=== PATIENT | male | born 1960 | race Caucasian/White ===

== ENCOUNTER 2019-04-05 18:05 | Inpatient (IN) | payer BC ==
[~2019-04-05 18:05] MED LIST: Sodium Chloride 0.9% 1,000 ML IV ONE
[2019-04-05] MEDS ORDERED: Ondansetron 4 MG/2 ML SDV IVPUSH ONE (18:20)
[2019-04-05] MEDS ORDERED: HYDROmorphone 2 MG/ML SDV IVPUSH ONE (18:20)
--- NOTE | 2019-04-05 20:32 | EDM.PDOC ---
ED HPI GENERAL MEDICAL PROBLEM - General Chief Complaint: Abdominal Pain Stated Complaint: SENT FROM CLINIC Time Seen by Provider: 04/05/19 20:31 Source of Information: Reports: Patient History Limitations: Reports: No Limitations - History of Present Illness INITIAL COMMENTS - FREE TEXT/NARRATIVE: Michael is a 59 yo male complaining of abdominal pain. He described generalized, diffuse pain that started yesterday. Moderate intensity. Associated symptoms: vomiting x 3. He's not been passing gas. He had had umbilical hernia surgeries x3.Denies urinary symptoms Abdominal Pain Score (Numeric/FACES): 5 Headache Pain Score (Numeric/FACES): 7 - Related Data Allergies Allergy/AdvReac Type Severity Reaction Status Date / Time No Known Allergies Allergy Verified 04/05/19 18:18 Home Meds: Home Meds Aspirin [Ecotrin EC] 81 mg PO BEDTIME 04/06/19 [History] Cholecalciferol (Vitamin D3) [Vitamin D3] 1,000 unit PO BEDTIME 04/06/19 [ History] Fish Oil/[place]-3 Fatty Acids [Fish Oil 1,000 MG] 2 each PO BEDTIME 04/06/19 [ History] Melatonin 10 mg PO BEDTIME 04/06/19 [History] Metoprolol Succinate [Toprol XL 100mg] 100 mg PO BEDTIME 04/06/19 [History] Multivitamin [Multivitamins] 1 each PO BEDTIME 04/06/19 [History] Sertraline [Zoloft] 100 mg PO BEDTIME 04/06/19 [History] hydroCHLOROthiazide [Hydrochlorothiazide] 25 mg PO BEDTIME 04/06/19 [History] Past Medical History Other HEENT History: wears glasses Gastrointestinal History: Reports: Hiatal Hernia Genitourinary History: Reports: Other (See Below) Other Genitourinary History: kidney issues in the past Neurological History: Reports: Headaches, Chronic Endocrine/Metabolic History: Reports: Diabetes, Type II, Other (See Below) Other Endocrine/Metabolic History: borderline - Past Surgical History Cardiovascular Surgical History: Reports: Other (See Below) Other Cardiovascular Surgeries/Procedures: ablation GI Surgical History: Reports: Hernia Repair/Other Musculoskeletal Surgical History: Reports: Arthroscopic Knee Social & Family History - Family History Family Medical History: Noncontributory - Tobacco Use Smoking Status *Q: Never Smoker - Caffeine Use Caffeine Use: Reports: Soda - Recreational Drug Use Recreational Drug Use: No ED ROS GENERAL - Review of Systems Review Of Systems: ROS reveals no pertinent complaints other than HPI. ED EXAM, GI/ABD - Physical Exam Exam: See Below Exam Limited By: No Limitations General Appearance: Alert, WD/WN Eyes: Bilateral: Normal Appearance, EOMI Neck: Normal Inspection Respiratory/Chest: No Respiratory Distress Cardiovascular: Normal Peripheral Pulses GI/Abdominal Exam: Soft, Distended, Tender, Abnormal Bowel Sounds. No: Hepatomegaly, Splenomegaly (Male) Exam: Normal Inspection Extremities: Normal Inspection Neurological: Alert Psychiatric: Normal Affect Course - Vital Signs Last Recorded V/S: Last Vital Signs Temp 97.7 F 04/08/19 08:00 Pulse 67 04/08/19 08:00 Resp 18 04/08/19 08:00 BP 130/87 04/08/19 08:00 Pulse Ox 95 04/08/19 08:00 - Orders/Labs/Meds Meds: Medications Discontinued Medications Generic Name Dose Route Start Last Admin Trade Name Freq PRN Reason Stop Dose Admin Acetaminophen 1,000 mg 04/07/19 09:17 Tylenol Extra Strength PO Q4H PRN Pain Hydromorphone HCl 0.5 mg 04/05/19 18:20 04/05/19 18:30 Dilaudid IVPUSH 04/05/19 18:21 0.5 mg ONETIME ONE Administration Sodium Chloride 1,000 mls @ 500 mls/hr 04/05/19 18:05 04/05/19 18:31 Normal Saline IV 04/05/19 20:04 500 mls/hr .BOLUS ONE Administration Acetaminophen 1,000 mg/ Premix 100 mls @ 400 mls/hr 04/05/19 21:19 04/06/19 18:02 IV 04/06/19 21:20 400 mls/hr Q6H PRN Administration Pain Sodium Chloride 1,000 mls @ 150 mls/hr 04/05/19 19:45 04/06/19 04:44 Normal Saline IV 150 mls/hr ASDIRECTED EDUARDO Administration Potassium Chloride/Dextrose/Sod Cl 1,000 mls @ 125 mls/hr 04/06/19 08:15 04:30 D5 1/2 Ns W/ 20 Meq/L Kcl IV 125 mls/hr Q8H EDUARDO Administration Potassium Chloride 20 meq/ 100 mls @ 50 mls/hr 04/06/19 08:10 04/06/19 08:51 Premix IV 04/06/19 10:09 50 mls/hr ONETIME ONE Administration Lidocaine HCl Confirm 04/05/19 21:17 04/06/19 00:20 Glydo Administered 04/05/19 21:18 Not Given Dose 6 ml .ROUTE .STK-MED ONE Lidocaine HCl 6 ml 04/05/19 21:15 04/05/19 21:20 Glydo .XX 04/05/19 21:16 6 ml ONETIME ONE Administration Magnesium Oxide 400 mg 04/07/19 21:00 04/07/19 20:36 Magnesium Oxide PO 400 mg BEDTIME EDUARDO Administration Morphine Sulfate 1 mg 04/05/19 21:20 04/07/19 00:26 Morphine IVPUSH 1 mg Q1H PRN Administration Pain Ondansetron HCl 4 mg 04/05/19 18:20 04/05/19 18:31 Zofran IVPUSH 04/05/19 18:21 4 mg ONETIME ONE Administration Ondansetron HCl 8 mg 04/05/19 21:16 Zofran IV Q6H PRN Nausea/Vomiting Ondansetron HCl 4 mg 04/05/19 21:20 Zofran IVPUSH Q6H PRN Nausea/Vomiting Sodium Chloride 10 ml 04/07/19 00:50 04/07/19 11:37 Saline Flush FLUSH 10 ml ASDIRECTED PRN Administration Keep Vein Open Departure - Departure Time of Disposition: 19:14 Disposition: Admitted As Inpatient 64 Condition: Good Clinical Impression: SBO (small bowel obstruction) - Discharge Information - Problem List & Annotations (1) SBO (small bowel obstruction) SNOMED Code(s): 426648101 Code(s): K56.609 - UNSP INTESTNL OBST, UNSP TO PARTIAL VERSUS COMPLETE OBST Status: Acute - Problem List Review Problem List Initiated/Reviewed/Updated: Yes - Assessment/Plan Plan: He had had some IV F. Zofran and IV Dilaudid.I have consulted Dr Mario
[2019-04-05] MEDS ORDERED: Lidocaine 2% HCl 6 ML JEL.PF.APP ONE ×2 (21:15→21:17)
[2019-04-05] MEDS ORDERED: Ondansetron 4 MG/2 ML SDV IV PRN (21:16)
[2019-04-05] MEDS ORDERED: Ondansetron 4 MG/2 ML SDV IVPUSH PRN (21:20)
[2019-04-05] MEDS: Morphine 2 MG/ML Syringe IVPUSH PRN (21:45)
[2019-04-05] MEDS: Sodium Chloride 0.9% 1,000 ML IV SCH (22:10)
--- NOTE | 2019-04-05 22:56 | PREOP ---
ADMISSION DATE: 04/05/2019 CHIEF COMPLAINT: Abdominal pain. HISTORY OF PRESENT ILLNESS: This is a 59-year-old white male who presented to the clinic today with complaint of abdominal pain. This has been intermittent in nature with waves of exacerbation and relief. The patient states that this developed yesterday evening. He has had 3 episodes of emesis, 2 last night and one this morning. He identifies no exacerbating or relieving factors. He denies any fever or chills. He underwent today a subsequent workup, which demonstrated essentially normal laboratory exam. An ultrasound was obtained, I do not have the results. A "CT scan" was obtained with water-soluble contrast and apparently a diagnosis of small-bowel obstruction was made on the basis of this film. Has had several small bowel movements of hard stool, patient denies any passage of flatus. He has had several abdominal operations in the past including umbilical hernia repair x3, and apparently, 2 of them were for small bowel obstruction and adhesions. This was done by Dr. Troncoso and Dr. Lehman in the past. SOCIAL HISTORY: The patient is . Drinks very rarely. Denies any cigarette use. CURRENT MEDICATIONS: Toprol and Zoloft, doses currently are not available. PAST MEDICAL HISTORY: Significant for anxiety and hypertension. Cardiac ablation PAST SURGICAL HISTORY: Significant for tonsils and adenoids, knee surgery, as well as abdominal surgery x3 for repair of umbilical hernia with mesh. REVIEW OF SYSTEMS: CONSTITUTIONAL: The patient denies any fever, chills, or weight loss. HEENT: He denies any trouble with his ears, hearing loss, ringing in his ears. Denies any difficulty swallowing, runny nose, sore throat, or voice change. Eyes; denies any significant pathology with his sight. PULMONARY: He notes some occasional wheezing and shortness of breath during wheezing episodes. CARDIAC: He denies any history of any chest pain or irregular heartbeat. He has had a cardiac ablation in the past. GI: See above. URINARY: Denies any dysuria, difficulty urinating. MUSCULOSKELETAL: Has occasional back pain. SKIN: Denies any skin issues. NEUROLOGIC: Denies any neurologic issues. He denies any environmental or food allergies. PHYSICAL EXAMINATION: GENERAL: This is a well-developed, well-nourished white male, appearing in no acute distress. VITAL SIGNS: Temperature is 98.3, pulse rate 82, blood pressure 103/55, respiratory rate of 18, and O2 saturation 92%. HEENT: Reveals him to be normocephalic, atraumatic. Pupils are equal and reactive bilaterally. Oropharynx is clear. LUNGS: Clear to auscultation. HEART: Has a regular rate and rhythm. ABDOMEN: Reveals him to have normal to hyperactive bowel sounds. No marked tenderness, rebound, or guarding was noted. DIAGNOSTIC DATA: On review of the CT scan, he does have some dilated small bowel. Has air and stool in the colon as well. ASSESSMENT: At this point, he appears to have at least a partial small-bowel obstruction. PLAN: IV fluids and nasogastric decompression. Reassess in the morning. /[id number] NAHUM/ELIUD MCCABE
[2019-04-06] MEDS: Morphine 2 MG/ML Syringe IVPUSH PRN ×2 (00:18→03:15)
[2019-04-06] MEDS: Sodium Chloride 0.9% 1,000 ML IV SCH (04:44)
[2019-04-06] MEDS: Acetaminophen 1,000 MG in Premix Bag 1 BAG IV PRN ×3 (04:59→18:02)
--- NOTE | 2019-04-06 08:08 | PCM.SURGPN ---
- General Info Functional Status: Reports: Pain Controlled, Urinating. Denies: Tolerating Diet , New Symptoms - Review of Systems Gastrointestinal: Denies: Abdominal Pain, Flatus - Patient Data Vitals - Most Recent: Last Vital Signs Temp 97.7 F 04/06/19 06:10 Pulse 74 04/06/19 06:10 Resp 18 04/06/19 06:10 BP 115/75 04/06/19 06:10 Pulse Ox 93 L 04/06/19 06:10 Weight - Most Recent: 131.995 kg I&O - Last 24 Hours: Intake & Output 04/05/19 04/06/19 04/06/19 22:59 06:59 14:59 Intake Total 1325 Output Total 300 350 Balance -300 975 Lab Results Last 24 Hrs: Laboratory Results - last 24 hr 04/06/19 04/06/19 Range/Units 06:52 06:52 WBC 7.2 (4.5-12.0) X10-3/uL RBC 5.05 (4.30-5.75) x10(6)uL Hgb 14.3 (13.5-17.8) g/dL Hct 41.7 (30.0-51.3) % MCV 82.5 (80-96) fL MCH 28.3 (27.7-33.6) pg MCHC 34.3 (32.2-35.4) g/dL RDW 13.6 (11.5-15.5) % Plt Count 189 (125-369) X10(3)uL MPV 9.2 (7.4-10.4) fL Neut % (Auto) 80.1 (46-82) % Lymph % (Auto) 10.2 L (13-37) % Todd % (Auto) 8.4 (4-12) % Eos % (Auto) 1 (1.0-5.0) % Baso % (Auto) 0 (0-2) % Neut # (Auto) 5.8 (1.6-8.3) # Lymph # (Auto) 0.7 (0.6-5.0) # Todd # (Auto) 0.6 (0.0-1.3) # Eos # (Auto) 0.1 (0.0-0.8) # Baso # (Auto) 0.0 (0.0-0.2) # Sodium 142 (135-145) mmol/L Potassium 3.4 L (3.5-5.3) mmol/L Chloride 106 (100-110) mmol/L Carbon Dioxide 27 (21-32) mmol/L BUN 18 (7-18) mg/dL Creatinine 1.2 (0.70-1.30) mg/dL Est Cr Clr Drug Dosing 64.64 mL/min Estimated GFR (MDRD) > 60 (>60) BUN/Creatinine Ratio 15.0 (9-20) Glucose 130 H (80-116) mg/dL Calcium 8.7 (8.6-10.2) mg/dL Total Bilirubin 0.5 (0.1-1.3) mg/dL AST 12 (5-25) IU/L ALT 23 (12-36) U/L Alkaline Phosphatase 53 L (56-112) IU/L Total Protein 6.8 (6.0-8.0) g/dL Albumin 3.2 (3.2-4.6) g/dL Globulin 3.6 g/dL Albumin/Globulin Ratio 0.9 Med Orders - Current: Current Medications Acetaminophen 1,000 mg/ Premix 100 mls @ 400 mls/hr IV Q6H PRN PRN Reason: Pain Stop: 04/06/19 21:20 Last Admin: 04/06/19 04:59 Dose: 400 mls/hr Sodium Chloride (Normal Saline) 1,000 mls @ 150 mls/hr IV ASDIRECTED [facility] Last Admin: 04/06/19 04:44 Dose: 150 mls/hr Morphine Sulfate (Morphine) 1 mg IVPUSH Q1H PRN PRN Reason: Pain Last Admin: 04/06/19 03:15 Dose: 1 mg Ondansetron HCl (Zofran) 8 mg IV Q6H PRN PRN Reason: Nausea/Vomiting Ondansetron HCl (Zofran) 4 mg IVPUSH Q6H PRN PRN Reason: Nausea/Vomiting Discontinued Medications Hydromorphone HCl (Dilaudid) 0.5 mg IVPUSH ONETIME ONE Stop: 04/05/19 18:21 Last Admin: 04/05/19 18:30 Dose: 0.5 mg Sodium Chloride (Normal Saline) 1,000 mls @ 500 mls/hr IV .BOLUS ONE Stop: 04/05/19 20:04 Last Admin: 04/05/19 18:31 Dose: 500 mls/hr Lidocaine HCl (Glydo) Confirm Administered Dose 6 ml .ROUTE .STK-MED ONE Stop: 04/05/19 21:18 Last Admin: 04/06/19 00:20 Dose: Not Given Lidocaine HCl (Glydo) 6 ml .XX ONETIME ONE Stop: 04/05/19 21:16 Last Admin: 04/05/19 21:20 Dose: 6 ml Ondansetron HCl (Zofran) 4 mg IVPUSH ONETIME ONE Stop: 04/05/19 18:21 Last Admin: 04/05/19 18:31 Dose: 4 mg - Exam General: Alert, Oriented, Cooperative, No Acute Distress Lungs: Clear to Auscultation, Normal Respiratory Effort Cardiovascular: Regular Rate, Regular Rhythm GI/Abdominal Exam: Soft, Non-Tender, No Distention, Abnormal Bowel Sounds ( slightly hypoactive bowel sounds ). No: Rigid, Rebound, Tender Skin: Warm, Dry, Intact - Problem List & Annotations (1) SBO (small bowel obstruction) SNOMED Code(s): 045393321 Code(s): K56.609 - UNSP INTESTNL OBST, UNSP TO PARTIAL VERSUS COMPLETE OBST Status: Acute Current Visit: Yes - Problem List Review Problem List Initiated/Reviewed/Updated: Yes - My Orders Last 24 Hours: Active Orders 24 hr Category Date Time Status Patient Status [ADT] Routine ADT 04/05/19 21:16 Active Height and Weight [RC] UPON Care 04/05/19 21:16 Active Intake and Output [RC] 06,14,22 Care 04/05/19 21:17 Active NG [Gastrointestinal Tube Mgmt] [RC] 00,08,16 Care 04/05/19 21:19 Active Oxygen Therapy [RC] PRN Care 04/05/19 21:16 Active Up ad Wendie [RC] ASDIRECTED Care 04/05/19 21:16 Active Vital Signs [RC] 00,04,08,12,16,20 Care 04/05/19 21:16 Active Nothing per Oral Now Diet [DIET] Diet 04/05/19 Dinner Ordered Acetaminophen [Ofirmev] 1,000 mg Med 04/05/19 21:19 Active Premix Bag 1 bag IV Q6H Morphine Med 04/05/19 21:20 Active 1 mg IVPUSH Q1H PRN Ondansetron [Zofran] Med 04/05/19 21:20 Active 4 mg IVPUSH Q6H PRN Ondansetron [Zofran] Med 04/05/19 21:16 Active 8 mg IV Q6H PRN Sodium Chloride 0.9% [Normal Saline] 1,000 ml Med 04/05/19 19:45 Active IV ASDIRECTED Nasogastric Orogastric Tube Insertion [OM.PC] Urgent Oth 04/05/19 21:17 Ordered Sequential Compression Device [OM.PC] Per Unit Routine Oth 04/05/19 21:17 Ordered Resuscitation Status Routine Resus Stat 04/05/19 21:16 Ordered Medication Orders Acetaminophen 1,000 mg/ Premix 100 mls @ 400 mls/hr IV Q6H PRN PRN Reason: Pain Stop: 04/06/19 21:20 Last Admin: 04/06/19 04:59 Dose: 400 mls/hr Sodium Chloride (Normal Saline) 1,000 mls @ 150 mls/hr IV ASDIRECTED EDUARDO Last Admin: 04/06/19 04:44 Dose: 150 mls/hr Infusion: 04/06/19 04:44 Dose: 150 mls/hr Admin: 04/05/19 22:10 Dose: 150 mls/hr Morphine Sulfate (Morphine) 1 mg IVPUSH Q1H PRN PRN Reason: Pain Last Admin: 04/06/19 03:15 Dose: 1 mg Admin: 04/06/19 00:18 Dose: 1 mg Admin: 04/05/19 21:45 Dose: 1 mg Ondansetron HCl (Zofran) 8 mg IV Q6H PRN PRN Reason: Nausea/Vomiting Ondansetron HCl (Zofran) 4 mg IVPUSH Q6H PRN PRN Reason: Nausea/Vomiting - Assessment Assessment (Free Text/Narrative):: clinically appears better this am. NGT output is clear - Plan Plan (Free Text/Narrative):: continue NGT decompression. will correct K .
[2019-04-06] MEDS ORDERED: Potassium Chloride 20 MEQ in Premix Bag 1 BAG IV ONE (08:10)
[2019-04-06] MEDS: D5 1/2 NS w/ 20 mEq/L KCl 1,000 ML IV SCH ×2 (11:10→19:24)
[2019-04-07] MEDS: Sodium Chloride 0.9% 10 ML Syringe FLUSH PRN ×3 (00:05→11:37)
[2019-04-07] MEDS: Morphine 2 MG/ML Syringe IVPUSH PRN (00:26)
[2019-04-07] MEDS ORDERED: Sodium Chloride 0.9% 10 ML SDV FLUSH SCH (00:30)
[2019-04-07] MEDS: D5 1/2 NS w/ 20 mEq/L KCl 1,000 ML IV SCH ×3 (04:16→20:34)
[2019-04-07] MEDS ORDERED: Acetaminophen 500 MG Tab PO PRN (09:17)
--- NOTE | 2019-04-07 09:23 | PCM.PN ---
- General Info Date of Service: 04/07/19 Admission Dx/Problem (Free Text): Small bowel obstruction - Review of Systems General: Denies: Fever, Chills Pulmonary: Reports: No Symptoms Gastrointestinal: Reports: Flatus, Other (small stools x 2 - NG about 300/shift) . Denies: Abdominal Pain, Nausea Genitourinary: Reports: No Symptoms Systems Review Comment:: x-ray shows only mild small bowel gas and contrast and gas in colon - Patient Data Vitals - Most Recent: Last Vital Signs Temp 97.9 F 04/07/19 04:30 Pulse 68 04/07/19 04:30 Resp 18 04/07/19 04:30 BP 112/64 04/07/19 04:30 Pulse Ox 93 L 04/07/19 04:30 Weight - Most Recent: 291 lb I&O - Last 24 Hours: Intake & Output 04/06/19 04/07/19 04/07/19 22:59 06:59 14:59 Intake Total 1086 668 Output Total 550 550 Balance 536 118 Lab Results Last 24 Hours: Laboratory Results - last 24 hr 04/07/19 04/07/19 Range/Units 06:30 06:30 WBC 5.9 (4.5-12.0) X10-3/uL RBC 4.85 (4.30-5.75) x10(6)uL Hgb 13.4 L (13.5-17.8) g/dL Hct 40.4 (30.0-51.3) % MCV 83.4 (80-96) fL MCH 27.6 L (27.7-33.6) pg MCHC 33.1 (32.2-35.4) g/dL RDW 13.5 (11.5-15.5) % Plt Count 186 (125-369) X10(3)uL Sodium 144 (135-145) mmol/L Potassium 3.5 (3.5-5.3) mmol/L Chloride 107 (100-110) mmol/L Carbon Dioxide 31 (21-32) mmol/L BUN 14 (7-18) mg/dL Creatinine 1.1 (0.70-1.30) mg/dL Est Cr Clr Drug Dosing 70.52 mL/min Estimated GFR (MDRD) > 60 (>60) BUN/Creatinine Ratio 12.7 (9-20) Glucose 131 H (80-116) mg/dL Calcium 8.4 L (8.6-10.2) mg/dL Med Orders - Current: Current Medications Potassium Chloride/Dextrose/Sod Cl (D5 1/2 Ns W/ 20 Meq/L Kcl) 1,000 mls @ 125 mls/hr IV Q8H EDUARDO Last Admin: 04/07/19 04:16 Dose: 125 mls/hr Morphine Sulfate (Morphine) 1 mg IVPUSH Q1H PRN PRN Reason: Pain Last Admin: 04/07/19 00:26 Dose: 1 mg Ondansetron HCl (Zofran) 8 mg IV Q6H PRN PRN Reason: Nausea/Vomiting Ondansetron HCl (Zofran) 4 mg IVPUSH Q6H PRN PRN Reason: Nausea/Vomiting Sodium Chloride (Saline Flush) 10 ml FLUSH ASDIRECTED PRN PRN Reason: Keep Vein Open Last Admin: 04/07/19 00:05 Dose: 10 ml Discontinued Medications Hydromorphone HCl (Dilaudid) 0.5 mg IVPUSH ONETIME ONE Stop: 04/05/19 18:21 Last Admin: 04/05/19 18:30 Dose: 0.5 mg Sodium Chloride (Normal Saline) 1,000 mls @ 500 mls/hr IV .BOLUS ONE Stop: 04/05/19 20:04 Last Admin: 04/05/19 18:31 Dose: 500 mls/hr Acetaminophen 1,000 mg/ Premix 100 mls @ 400 mls/hr IV Q6H PRN PRN Reason: Pain Stop: 04/06/19 21:20 Last Admin: 04/06/19 18:02 Dose: 400 mls/hr Sodium Chloride (Normal Saline) 1,000 mls @ 150 mls/hr IV ASDIRECTED EDUARDO Last Admin: 04/06/19 04:44 Dose: 150 mls/hr Potassium Chloride 20 meq/ (Premix) 100 mls @ 50 mls/hr IV ONETIME ONE Stop: 04/06/19 10:09 Last Admin: 04/06/19 08:51 Dose: 50 mls/hr Lidocaine HCl (Glydo) Confirm Administered Dose 6 ml .ROUTE .STK-MED ONE Stop: 04/05/19 21:18 Last Admin: 04/06/19 00:20 Dose: Not Given Lidocaine HCl (Glydo) 6 ml .XX ONETIME ONE Stop: 04/05/19 21:16 Last Admin: 04/05/19 21:20 Dose: 6 ml Ondansetron HCl (Zofran) 4 mg IVPUSH ONETIME ONE Stop: 04/05/19 18:21 Last Admin: 04/05/19 18:31 Dose: 4 mg - Exam General: Alert, Oriented Lungs: Normal Respiratory Effort GI/Abdominal Exam: Soft, Tender (minimal in epigastrium). No: Distended - Problem List Review Problem List Initiated/Reviewed/Updated: Yes - My Orders Last 24 Hours: My Active Orders 04/06/19 18:00 Communication Order [RC] ROUTINE 04/07/19 09:17 Acetaminophen [Tylenol Extra Strength] 1,000 mg PO Q4H PRN NG [Nasogastric Orogastric Tube Removal] [OM.PC] Routine 04/07/19 Breakfast Clear Liquid Diet [DIET] - Assessment Assessment:: Small bowel obstruction - improving - Plan Plan:: DC NG Begin clear liquids Tylenol for headache
--- NOTE | 2019-04-07 11:48 | PCM.PN ---
- General Info Date of Service: 04/07/19 Subjective Update: Has small bowel movements x 2 overnight, passing some gas. No increased pain when NG was clamped overnight. Dr Troncoso to see this morning. Still having headaches, IV Tylenol was discontinued yesterday. Did get dose of Morphine which didn't really help the headache. - Patient Data Vitals - Most Recent: Last Vital Signs Temp 36.6 C 04/07/19 04:30 Pulse 68 04/07/19 04:30 Resp 18 04/07/19 04:30 BP 112/64 04/07/19 04:30 Pulse Ox 93 L 04/07/19 04:30 Weight - Most Recent: 131.995 kg I&O - Last 24 Hours: Intake & Output 04/06/19 04/07/19 04/07/19 22:59 06:59 14:59 Intake Total 1086 668 Output Total 550 550 Balance 536 118 Lab Results Last 24 Hours: Laboratory Results - last 24 hr 04/07/19 04/07/19 Range/Units 06:30 06:30 WBC 5.9 (4.5-12.0) X10-3/uL RBC 4.85 (4.30-5.75) x10(6)uL Hgb 13.4 L (13.5-17.8) g/dL Hct 40.4 (30.0-51.3) % MCV 83.4 (80-96) fL MCH 27.6 L (27.7-33.6) pg MCHC 33.1 (32.2-35.4) g/dL RDW 13.5 (11.5-15.5) % Plt Count 186 (125-369) X10(3)uL Sodium 144 (135-145) mmol/L Potassium 3.5 (3.5-5.3) mmol/L Chloride 107 (100-110) mmol/L Carbon Dioxide 31 (21-32) mmol/L BUN 14 (7-18) mg/dL Creatinine 1.1 (0.70-1.30) mg/dL Est Cr Clr Drug Dosing 70.52 mL/min Estimated GFR (MDRD) > 60 (>60) BUN/Creatinine Ratio 12.7 (9-20) Glucose 131 H (80-116) mg/dL Calcium 8.4 L (8.6-10.2) mg/dL Med Orders - Current: Current Medications Acetaminophen (Tylenol Extra Strength) 1,000 mg PO Q4H PRN PRN Reason: Pain Potassium Chloride/Dextrose/Sod Cl (D5 1/2 Ns W/ 20 Meq/L Kcl) 1,000 mls @ 125 mls/hr IV Q[facility]H [facility] Last Admin: 04/07/19 04:16 Dose: 125 mls/hr Magnesium Oxide (Magnesium Oxide) 400 mg PO BEDTIME EDUARDO Morphine Sulfate (Morphine) 1 mg IVPUSH Q1H PRN PRN Reason: Pain Last Admin: 04/07/19 00:26 Dose: 1 mg Ondansetron HCl (Zofran) 8 mg IV Q6H PRN PRN Reason: Nausea/Vomiting Ondansetron HCl (Zofran) 4 mg IVPUSH Q6H PRN PRN Reason: Nausea/Vomiting Sodium Chloride (Saline Flush) 10 ml FLUSH ASDIRECTED PRN PRN Reason: Keep Vein Open Last Admin: 04/07/19 11:37 Dose: 10 ml Discontinued Medications Hydromorphone HCl (Dilaudid) 0.5 mg IVPUSH ONETIME ONE Stop: 04/05/19 18:21 Last Admin: 04/05/19 18:30 Dose: 0.5 mg Sodium Chloride (Normal Saline) 1,000 mls @ 500 mls/hr IV .BOLUS ONE Stop: 04/05/19 20:04 Last Admin: 04/05/19 18:31 Dose: 500 mls/hr Acetaminophen 1,000 mg/ Premix 100 mls @ 400 mls/hr IV Q6H PRN PRN Reason: Pain Stop: 04/06/19 21:20 Last Admin: 04/06/19 18:02 Dose: 400 mls/hr Sodium Chloride (Normal Saline) 1,000 mls @ 150 mls/hr IV ASDIRECTED EDUARDO Last Admin: 04/06/19 04:44 Dose: 150 mls/hr Potassium Chloride 20 meq/ (Premix) 100 mls @ 50 mls/hr IV ONETIME ONE Stop: 04/06/19 10:09 Last Admin: 04/06/19 08:51 Dose: 50 mls/hr Lidocaine HCl (Glydo) Confirm Administered Dose 6 ml .ROUTE .STK-MED ONE Stop: 04/05/19 21:18 Last Admin: 04/06/19 00:20 Dose: Not Given Lidocaine HCl (Glydo) 6 ml .XX ONETIME ONE Stop: 04/05/19 21:16 Last Admin: 04/05/19 21:20 Dose: 6 ml Ondansetron HCl (Zofran) 4 mg IVPUSH ONETIME ONE Stop: 04/05/19 18:21 Last Admin: 04/05/19 18:31 Dose: 4 mg - Exam General: Alert, Oriented Lungs: Clear to Auscultation, Normal Respiratory Effort Cardiovascular: Regular Rate, Regular Rhythm GI/Abdominal Exam: Normal Bowel Sounds, Soft, Non-Tender - Problem List Review Problem List Initiated/Reviewed/Updated: Yes - My Orders Last 24 Hours: My Active Orders 04/06/19 13:02 Notify Provider Consults [RC] ASDIRECTED 04/06/19 16:49 Consult to Physician [CONS] Routine 04/06/19 16:50 Notify Provider Consults [RC] ASDIRECTED 04/07/19 00:50 Sodium Chloride 0.9% [Saline Flush] 10 ml FLUSH ASDIRECTED PRN 04/07/19 21:00 Magnesium Oxide 400 mg PO BEDTIME - Assessment Assessment:: Small bowel obstruction - improving - Plan Plan:: Discussed with jackelyn De Leon with starting magnesium 400 mg at bedtime to help with headaches. Labs improved today.
[2019-04-07] MEDS ORDERED: Magnesium Oxide 400 MG Tab PO SCH (21:00)
[2019-04-08] MEDS: D5 1/2 NS w/ 20 mEq/L KCl 1,000 ML IV SCH (04:30)
[2019-04-08 08:04] VITALS: BP 130/87; PULSE 67
--- NOTE | 2019-04-08 09:39 | PCM.PN ---
- General Info Date of Service: 04/08/19 Subjective Update: No abdominal pain, nausea or vomiting. Having diarrhea, more flecks of stool with water now. No headache today. No further pain medication after the morphine that was given Tuesday 1230am. Tolerating clear liquids fine. - Patient Data Vitals - Most Recent: Last Vital Signs Temp 36.5 C 04/08/19 08:00 Pulse 67 04/08/19 08:00 Resp 18 04/08/19 08:00 BP 130/87 04/08/19 08:00 Pulse Ox 95 04/08/19 08:00 Weight - Most Recent: 131.995 kg I&O - Last 24 Hours: Intake & Output 04/07/19 04/08/19 04/08/19 22:59 06:59 14:59 Intake Total 792 1162 Output Total 380 0 Balance 412 1162 Med Orders - Current: Current Medications Acetaminophen (Tylenol Extra Strength) 1,000 mg PO Q4H PRN PRN Reason: Pain Potassium Chloride/Dextrose/Sod Cl (D5 1/2 Ns W/ 20 Meq/L Kcl) 1,000 mls @ 125 mls/hr IV Q8H EDUARDO Last Admin: 04/08/19 04:30 Dose: 125 mls/hr Magnesium Oxide (Magnesium Oxide) 400 mg PO BEDTIME [facility] Last Admin: 04/07/19 20:36 Dose: 400 mg Morphine Sulfate (Morphine) 1 mg IVPUSH Q1H PRN PRN Reason: Pain Last Admin: 04/07/19 00:26 Dose: 1 mg Ondansetron HCl (Zofran) 8 mg IV Q6H PRN PRN Reason: Nausea/Vomiting Ondansetron HCl (Zofran) 4 mg IVPUSH Q6H PRN PRN Reason: Nausea/Vomiting Sodium Chloride (Saline Flush) 10 ml FLUSH ASDIRECTED PRN PRN Reason: Keep Vein Open Last Admin: 04/07/19 11:37 Dose: 10 ml Discontinued Medications Hydromorphone HCl (Dilaudid) 0.5 mg IVPUSH ONETIME ONE Stop: 04/05/19 18:21 Last Admin: 04/05/19 18:30 Dose: 0.5 mg Sodium Chloride (Normal Saline) 1,000 mls @ 500 mls/hr IV .BOLUS ONE Stop: 04/05/19 20:04 Last Admin: 04/05/19 18:31 Dose: 500 mls/hr Acetaminophen 1,000 mg/ Premix 100 mls @ 400 mls/hr IV Q6H PRN PRN Reason: Pain Stop: 04/06/19 21:20 Last Admin: 04/06/19 18:02 Dose: 400 mls/hr Sodium Chloride (Normal Saline) 1,000 mls @ 150 mls/hr IV ASDIRECTED EDUARDO Last Admin: 04/06/19 04:44 Dose: 150 mls/hr Potassium Chloride 20 meq/ (Premix) 100 mls @ 50 mls/hr IV ONETIME ONE Stop: 04/06/19 10:09 Last Admin: 04/06/19 08:51 Dose: 50 mls/hr Lidocaine HCl (Glydo) Confirm Administered Dose 6 ml .ROUTE .STK-MED ONE Stop: 04/05/19 21:18 Last Admin: 04/06/19 00:20 Dose: Not Given Lidocaine HCl (Glydo) 6 ml .XX ONETIME ONE Stop: 04/05/19 21:16 Last Admin: 04/05/19 21:20 Dose: 6 ml Ondansetron HCl (Zofran) 4 mg IVPUSH ONETIME ONE Stop: 04/05/19 18:21 Last Admin: 04/05/19 18:31 Dose: 4 mg - Exam General: Alert, Oriented, Cooperative Lungs: Clear to Auscultation, Normal Respiratory Effort Cardiovascular: Regular Rate, Regular Rhythm GI/Abdominal Exam: Normal Bowel Sounds, Soft, Non-Tender, No Distention - Problem List & Annotations (1) SBO (small bowel obstruction) SNOMED Code(s): 980213468 Code(s): K56.609 - UNSP INTESTNL OBST, UNSP TO PARTIAL VERSUS COMPLETE OBST Status: Acute Current Visit: Yes - Problem List Review Problem List Initiated/Reviewed/Updated: Yes - My Orders Last 24 Hours: My Active Orders 04/07/19 21:00 Magnesium Oxide 400 mg PO BEDTIME - Plan Plan:: Tolerating clear liquids, will await Dr Troncoso to advance diet and discontinue IVF. Continue ambulating in the halls. Possible discharge once he tolerates diet advancement.
--- NOTE | 2019-04-08 10:35 | PCM.PN ---
- General Info Date of Service: 04/08/19 Functional Status: Reports: Other (minimal abdominal pain) - Review of Systems General: Denies: Fever, Chills Pulmonary: Reports: No Symptoms Gastrointestinal: Reports: Abdominal Pain (minimal in mid abdomen), Flatus ( multiple stools). Denies: Nausea (even with advancing diet), Vomiting - Patient Data Vitals - Most Recent: Last Vital Signs Temp 97.7 F 04/08/19 08:00 Pulse 67 04/08/19 08:00 Resp 18 04/08/19 08:00 BP 130/87 04/08/19 08:00 Pulse Ox 95 04/08/19 08:00 Weight - Most Recent: 291 lb I&O - Last 24 Hours: Intake & Output 04/07/19 04/08/19 04/08/19 22:59 06:59 14:59 Intake Total 792 1162 586 Output Total 380 0 Balance 412 1162 586 Med Orders - Current: Current Medications Acetaminophen (Tylenol Extra Strength) 1,000 mg PO Q4H PRN PRN Reason: Pain Potassium Chloride/Dextrose/Sod Cl (D5 1/2 Ns W/ 20 Meq/L Kcl) 1,000 mls @ 125 mls/hr IV Q8H [facility] Last Admin: 04/08/19 04:30 Dose: 125 mls/hr Magnesium Oxide (Magnesium Oxide) 400 mg PO BEDTIME [facility] Last Admin: 04/07/19 20:36 Dose: 400 mg Morphine Sulfate (Morphine) 1 mg IVPUSH Q1H PRN PRN Reason: Pain Last Admin: 04/07/19 00:26 Dose: 1 mg Ondansetron HCl (Zofran) 8 mg IV Q6H PRN PRN Reason: Nausea/Vomiting Ondansetron HCl (Zofran) 4 mg IVPUSH Q6H PRN PRN Reason: Nausea/Vomiting Sodium Chloride (Saline Flush) 10 ml FLUSH ASDIRECTED PRN PRN Reason: Keep Vein Open Last Admin: 04/07/19 11:37 Dose: 10 ml Discontinued Medications Hydromorphone HCl (Dilaudid) 0.5 mg IVPUSH ONETIME ONE Stop: 04/05/19 18:21 Last Admin: 04/05/19 18:30 Dose: 0.5 mg Sodium Chloride (Normal Saline) 1,000 mls @ 500 mls/hr IV .BOLUS ONE Stop: 04/05/19 20:04 Last Admin: 04/05/19 18:31 Dose: 500 mls/hr Acetaminophen 1,000 mg/ Premix 100 mls @ 400 mls/hr IV Q6H PRN PRN Reason: Pain Stop: 04/06/19 21:20 Last Admin: 04/06/19 18:02 Dose: 400 mls/hr Sodium Chloride (Normal Saline) 1,000 mls @ 150 mls/hr IV ASDIRECTED EDUARDO Last Admin: 04/06/19 04:44 Dose: 150 mls/hr Potassium Chloride 20 meq/ (Premix) 100 mls @ 50 mls/hr IV ONETIME ONE Stop: 04/06/19 10:09 Last Admin: 04/06/19 08:51 Dose: 50 mls/hr Lidocaine HCl (Glydo) Confirm Administered Dose 6 ml .ROUTE .STK-MED ONE Stop: 04/05/19 21:18 Last Admin: 04/06/19 00:20 Dose: Not Given Lidocaine HCl (Glydo) 6 ml .XX ONETIME ONE Stop: 04/05/19 21:16 Last Admin: 04/05/19 21:20 Dose: 6 ml Ondansetron HCl (Zofran) 4 mg IVPUSH ONETIME ONE Stop: 04/05/19 18:21 Last Admin: 04/05/19 18:31 Dose: 4 mg - Exam General: Alert, Oriented Lungs: Normal Respiratory Effort GI/Abdominal Exam: Soft, No Distention - Problem List Review Problem List Initiated/Reviewed/Updated: Yes - My Orders Last 24 Hours: My Active Orders 04/08/19 Breakfast Full Liquid Diet [DIET] - Assessment Assessment:: Small bowel obstruction - appears to be resolved Tolerating full liquids well - multiple stools - Plan Plan:: Discharge
--- NOTE | 2019-04-09 11:01 | CR ---
INDICATION: Small bowel obstruction. ABDOMEN, SUPINE: Five images of the abdomen in the supine projection revealed evidence of previous extensive ventral hernia repair. Oral contrast is noted in the colon. Dilated loops of small bowel are diminished significantly in diameter. Only a few slightly prominent loops are noted in the left flank area. At this time, a definite acute mechanical obstruction is not identified; however, there is noted a nasogastric tube in place with its tip in the gastric antrum. No definite mass lesions or organomegaly were identified. IMPRESSION: Improved appearance of the abdomen. Nasogastric tube remains in place. MTDD
--- NOTE | 2019-04-16 15:55 | DISCH ---
DISCHARGE DATE: 04/08/2019 DISCHARGE DIAGNOSES: 1. Small-bowel obstruction secondary to adhesions. 2. History of hypertension. 3. History of cardiac ablation. HISTORY: This 59-year-old male presented to the emergency room with complaints of abdominal pain on 04/05/2019. These were somewhat intermittent and associated with nausea and vomiting. The patient's past history included multiple previous abdominal operations including hernia repairs, and the patient does have a known history of small bowel obstruction from adhesions. The patient was evaluated with a CT scan, which was interpreted as showing dilated loops of small bowel consistent with a small bowel obstruction. HOSPITAL COURSE: The patient was admitted and placed n.p.o. with NG suction and given IV hydration. With this treatment, the patient clinically improved. He developed resolution of his abdominal pain and by 2 days after admission, an abdominal x-ray showed decreasing size of the small bowel loops as well as oral contrast in his colon. As his condition improved, he began passing some loose stools and his NG tube was removed, and he was started on a liquid diet. The patient tolerated a light diet well, continued to have resolution of his abdominal symptoms, and was discharged to home on the 3rd day after admission. He will resume his regular medications and follow up in the outpatient clinic as needed. /[id number] AMANDEEP/ELIUD
--- OUTSIDE RECORDS SUMMARY | 2019-05-04 10:37 | XMSREPORT | Referral Summary ---
:1960 [facility] [address] [place] [address] Care Team Providers Name Role Phone Júnior Falcon MD Attributed Provider Reason for Referral Transitions of Care (Routine) Status Reason Specialty Diagnoses / Referred By Referred To Procedures Contact Contact New Request Patient Diagnoses Abdominal cramps Júnior Falcon, [facility] MD Theron Centeno, [address] [place] [id number] [address] Phone: [place] [phone] [place] [address] Fax: Encounter Details Date Type Department Care Team Description 04/13/[address] [facility] [address] [place] [address] [place] [address] [phone] Allergies No Known Allergiesdocumented as of this encounter (statuses as of 04/16/2019) Medications Medication Sig Dispensed Refills Start Date End Date Status aspirin 81 MG tablet Take 81 mg by 0 Active mouth 1 time per day. Multiple Vitamins-Minerals Take 1 tablet 0 Active (MULTIVITAMIN PO) by mouth 1 time per day. vitamin D3, Take 1,000 0 Active cholecalciferol, 1000 unit Units by capsule mouth 1 time per day. omega-3 fatty acids (FISH Take 1,000 mg 0 Active OIL) 1000 mg capsule by mouth 1 time per day. sertraline (ZOLOFT) 100 mg Take 1 tablet 90 tablet 4 03/22/2018 Active tabletIndications: Major (100 mg) by depressive disorder with mouth 1 time single episode, in full per day remission (HCC) metoprolol succinate TAKE ONE 90 tablet 0 10/13/2018 Active (TOPROL XL) 100 mg SR TABLET EVERY tablet (24 hr)Indications: DAY Palpitations, Essential hypertension with goal blood pressure less than 140/90 hydroCHLOROthiazide 25 mg TAKE 1 TABLET 90 tablet 0 01/17/2019 Active tabletIndications: (25 MG TOTAL) Essential hypertension with BY MOUTH 1 goal blood pressure less TIME PER DAY than 140/90 documented as of this encounter (statuses as of 04/16/2019) Active Problems Problem Noted Date Obesity (BMI 30-39.9) 01/12/2016 Fasting hyperglycemia 01/12/2016 Chronic midline low back pain without sciatica 01/12/2016 Special screening for malignant neoplasms, colon 11/25/2009 Mixed hyperlipidemia 11/25/2009 Special screening for malignant neoplasm of prostate 11/25/2009 Depression, major, in remission 03/05/2008 Essential hypertension 03/05/2008 documented as of this encounter (statuses as of 04/16/2019) Immunizations Name Dates Previously Given Next Due Influenza Trivalent w/preserv 06/26/2015 TDAP 10/17/2008 Td(adult)preservative free 12/31/1996 documented as of this encounter Social History Tobacco Use Types Packs/Day Years Used Date Never Smoker Smokeless Tobacco: Never Used Alcohol Use Drinks/Week oz/Week Comments No Sex Assigned at Date Recorded Not on file Job Start Date Occupation Industry Not on file Not on file Not on file Travel History Travel Start Travel End No recent travel history available. documented as of this encounter Functional Status Functional Status Response Date of Assessment Do you have difficulty with walking, balance, climbing No 03/22/2018 stairs, or had a fall in the last 3 months? documented as of this encounter Plan of Treatment Name Priority Associated Diagnoses Order Schedule CLINIC REFERRAL WALK-IN/ER NON ONE Routine Abdominal cramps Ordered: 2018 CHART documented as of this encounter Visit Diagnoses Diagnosis Abdominal cramps - Primary Abdominal pain, unspecified site documented in this encounter
== END 2019-04-08 10:50 | disposition home or self-care (01) | DRG 247 ==
LOC: FB.ED 18:05 → FB.MS 21:28
PROVIDERS: ADMIT Surgery; ATTEND Family Medicine
DX: K56.609 Unspecified intestinal obstruction, unspecified as to partial versus complete obstruction (principal); I10 Essential (primary) hypertension; E11.9 Type 2 diabetes mellitus without complications; G44.89 Other headache syndrome; F41.9 Anxiety disorder, unspecified; Z79.82 Long term (current) use of aspirin
CPT/HCPCS: 36415; 74018; 74178; 76700; 80048; 80053; 80061; 81001; 82150; 85025; 85027; 96361; 96374; 96375; 99285-25; A9270-GY; J0131; J1170; J2270; J2405; J3480; J7030; Q9967

== ENCOUNTER 2020-01-21 07:24 | Observation (INO) | payer BC ==
[2020-01-21] MEDS ORDERED: Sodium Chloride 0.9% 10 ML Syringe FLUSH PRN (07:55)
[2020-01-21] MEDS ORDERED: Nitroglycerin 0.4 MG Tab.SL SL PRN ×2 (07:55→12:18)
[2020-01-21] MEDS ORDERED: Aspirin 81 MG Tab.Chew PO ONE (07:56)
[2020-01-21] MEDS: Sodium Chloride 0.9% 1,000 ML IV SCH ×2 (08:25→17:48)
--- NOTE | 2020-01-21 09:37 | EDM.PDOC ---
ED HPI GENERAL MEDICAL PROBLEM - General Chief Complaint: Chest Pain Stated Complaint: CHEST TIGHTNESS,WHEZZING Time Seen by Provider: 01/21/20 08:00 Source of Information: Reports: Patient History Limitations: Reports: No Limitations - History of Present Illness INITIAL COMMENTS - FREE TEXT/NARRATIVE: Presents with non-radiating substernal chest pressure since last night. Denies abdominal pain, N/V, SOB, or prior h/o CAD. He has had prior cardiac ablation for tachyarrhythmia. Patient does not smoke cigarettes. He does have a PMHx significant for HTN. Also c/o slight cough and sore throat, no fever. Patient requests COVID-19 testing Onset Date: 01/20/20 Location: Reports: Chest Quality: Reports: Pressure Severity: Mild Improves with: Reports: None Worsens with: Reports: None chest pressure Pain Score (Numeric/FACES): 2 - Related Data Allergies Allergy/AdvReac Type Severity Reaction Status Date / Time No Known Allergies Allergy Verified 01/21/20 07:52 Home Meds: Home Meds Aspirin [Ecotrin EC] 81 mg PO DAILY 04/06/19 [History] Cholecalciferol (Vitamin D3) [Vitamin D3] 50 mcg PO DAILY 04/06/19 [History] Fish Oil/[place]-3 Fatty Acids [Fish Oil 1,000 MG] 1,400 mg PO DAILY 04/06/19 [ History] Metoprolol Succinate [Toprol XL 100mg] 100 mg PO DAILY 04/06/19 [History] Multivitamin [Multivitamins] 1 each PO DAILY 04/06/19 [History] Sertraline [Zoloft] 100 mg PO DAILY 04/06/19 [History] hydroCHLOROthiazide [Hydrochlorothiazide] 25 mg PO DAILY 04/06/19 [History] Docusate Sodium [Colace] 1 cap PO DAILY 01/21/20 [History] Past Medical History Other HEENT History: wears glasses Cardiovascular History: Reports: Arrhythmia, Hypertension. Denies: CAD, OR Respiratory History: Reports: SOB, Other (See Below) Other Respiratory History: SOB with activity at times. Gastrointestinal History: Reports: Hiatal Hernia Genitourinary History: Reports: Other (See Below) Other Genitourinary History: kidney issues in the past Musculoskeletal History: Reports: Arthritis, Other (See Below) Other Musculoskeletal History: Left knee arthritis. Neurological History: Reports: Headaches, Chronic Other Neuro History: Concussions in high school with football injuries. Endocrine/Metabolic History: Reports: Diabetes, Type II, Other (See Below) Other Endocrine/Metabolic History: borderline - Infectious Disease History Infectious Disease History: Reports: Chicken Pox, Measles, Mumps - Past Surgical History HEENT Surgical History: Reports: Adenoidectomy Cardiovascular Surgical History: Reports: Cardiac Ablation GI Surgical History: Reports: Hernia Repair/Other, Small Bowel Musculoskeletal Surgical History: Reports: Arthroscopic Knee Social & Family History - Family History Family Medical History: Noncontributory - Tobacco Use Smoking Status *Q: Never Smoker Second Hand Smoke Exposure: No - Caffeine Use Caffeine Use: Reports: Soda - Alcohol Use Alcohol Use History: Yes Alcohol Use Frequency: Rarely - Recreational Drug Use Recreational Drug Use: No ED ROS GENERAL - Review of Systems Review Of Systems: Comprehensive ROS is negative, except as noted in HPI. ED EXAM, GENERAL - Physical Exam Exam: See Below Exam Limited By: No Limitations General Appearance: Alert, WD/WN, No Apparent Distress Nose: Normal Inspection Throat/Mouth: No Airway Compromise Head: Atraumatic, Normocephalic Neck: Normal Inspection, Full Range of Motion Respiratory/Chest: No Respiratory Distress, Lungs Clear, Normal Breath Sounds, Chest Non-Tender Cardiovascular: Regular Rate, Rhythm, No Edema, No Gallop, No Murmur, No Rub GI/Abdominal: Normal Bowel Sounds, Soft, Non-Tender, No Distention Extremities: Normal Range of Motion, No Pedal Edema Neurological: Alert, Normal Cognition Psychiatric: Normal Affect, Normal Mood Skin Exam: Warm, Dry, Intact EKG INTERPRETATION EKG Date: 01/21/20 Time: 07:40 Rhythm: NSR Rate (Beats/Min): 64 [place]: Normal P-Wave: Present QRS: Normal ST-T: Normal QT: Normal EKG Interpretation Comments: EKG#2: Sinus bradycardia @56 bpm, no changes from EKG #2. Course - Vital Signs Last Recorded V/S: Last Vital Signs Temp 36.4 C 01/21/20 07:25 Pulse 63 01/21/20 07:25 Resp 14 01/21/20 07:25 BP 146/80 H 01/21/20 08:36 Pulse Ox 98 01/21/20 07:25 - Orders/Labs/Meds Orders: Active Orders 24 hr Category Date Time Status Admission Status [Patient Status] [ADT] Routine ADT 01/21/20 11:49 Active EKG Documentation Completion [RC] ASDIRECTED Care 01/21/20 07:57 Active EKG Documentation Completion [RC] ASDIRECTED Care 01/21/20 11:26 Active CXR [Chest 1V Frontal] [CR] Stat Exams 01/21/20 07:56 Taken CORONAVIRUS COVID-19, CARMELO Stat Lab 01/21/20 09:39 Ordered Nitroglycerin [Nitrostat] Med 01/21/20 07:55 Active 0.4 mg SL Q5M PRN Sodium Chloride 0.9% [Normal Saline] 1,000 ml Med 01/21/20 08:00 Active IV ASDIRECTED Sodium Chloride 0.9% [Saline Flush] Med 01/21/20 07:55 Active 10 ml FLUSH ASDIRECTED PRN Saline Lock Insert [OM.PC] Routine Oth 01/21/20 07:55 Ordered EKG 12 Lead [EK] Stat Ther 01/21/20 07:56 Ordered EKG 12 Lead [EK] Stat Ther 01/21/20 11:25 Ordered Medication Orders Sodium Chloride (Normal Saline) 1,000 mls @ 100 mls/hr IV ASDIRECTED EDUARDO Last Admin: 01/21/20 08:25 Dose: 100 mls/hr Nitroglycerin (Nitrostat) 0.4 mg SL Q5M PRN PRN Reason: Chest Pain Last Admin: 01/21/20 08:36 Dose: 0.4 mg Sodium Chloride (Saline Flush) 10 ml FLUSH ASDIRECTED PRN PRN Reason: Keep Vein Open Last Admin: 01/21/20 08:25 Dose: 10 ml Labs: Laboratory Tests 01/21/20 01/21/20 01/21/20 Range/Units 08:10 08:10 08:10 WBC 5.0 (4.5-12.0) X10-3/uL RBC 5.28 (4.30-5.75) x10(6)uL Hgb 15.1 (13.5-17.8) g/dL Hct 43.6 (30.0-51.3) % MCV 82.7 (80-96) fL MCH 28.5 (27.7-33.6) pg MCHC 34.5 (32.2-35.4) g/dL RDW 13.5 (11.5-15.5) % Plt Count 214 (125-369) X10(3)uL MPV 8.0 (7.4-10.4) fL Neut % (Auto) 61.3 (46-82) % Lymph % (Auto) 22.5 (13-37) % [place] % (Auto) 5.5 (4-12) % Eos % (Auto) 10 H (1.0-5.0) % Baso % (Auto) 1 (0-2) % Neut # (Auto) 3.1 (1.6-8.3) # Lymph # (Auto) 1.1 (0.6-5.0) # Sutton # (Auto) 0.3 (0.0-1.3) # Eos # (Auto) 0.5 (0.0-0.8) # Baso # (Auto) 0.0 (0.0-0.2) # PT 10.1 (9.0-11.1) sec INR 0.94 L (1.00-1.24) APTT 24.3 L (24.4-33.2) SECONDS D-Dimer, Quantitative (0.0-0.59) mg/LFEU Sodium 142 (135-145) mmol/L Potassium 4.3 (3.5-5.3) mmol/L Chloride 104 (100-110) mmol/L Carbon Dioxide 29 (21-32) mmol/L BUN 19 H (7-18) mg/dL Creatinine 1.2 (0.70-1.30) mg/dL Est Cr Clr Drug Dosing TNP Estimated GFR (MDRD) > 60 (>60) BUN/Creatinine Ratio 15.8 (9-20) Glucose 124 H (80-116) mg/dL Calcium 9.0 (8.6-10.2) mg/dL Total Bilirubin 0.4 (0.1-1.3) mg/dL AST 14 D (5-25) IU/L ALT 22 (12-36) U/L Alkaline Phosphatase 63 (56-112) IU/L Troponin I (4.0-60.3) pg/mL Total Protein 6.9 (6.0-8.0) g/dL Albumin 3.3 (3.2-4.6) g/dL Globulin 3.6 g/dL Albumin/Globulin Ratio 0.9 01/21/20 01/21/20 01/21/20 Range/Units 08:10 08:10 11:00 WBC (4.5-12.0) X10-3/uL RBC (4.30-5.75) x10(6)uL Hgb (13.5-17.8) g/dL Hct (30.0-51.3) % MCV (80-96) fL MCH (27.7-33.6) pg MCHC (32.2-35.4) g/dL RDW (11.5-15.5) % Plt Count (125-369) X10(3)uL MPV (7.4-10.4) fL Neut % (Auto) (46-82) % Lymph % (Auto) (13-37) % Sutton % (Auto) (4-12) % Eos % (Auto) (1.0-5.0) % Baso % (Auto) (0-2) % Neut # (Auto) (1.6-8.3) # Lymph # (Auto) (0.6-5.0) # Sutton # (Auto) (0.0-1.3) # Eos # (Auto) (0.0-0.8) # Baso # (Auto) (0.0-0.2) # PT (9.0-11.1) sec INR (1.00-1.24) APTT (24.4-33.2) SECONDS D-Dimer, Quantitative 0.46 (0.0-0.59) mg/LFEU Sodium (135-145) mmol/L Potassium (3.5-5.3) mmol/L Chloride (100-110) mmol/L Carbon Dioxide (21-32) mmol/L BUN (7-18) mg/dL Creatinine (0.70-1.30) mg/dL Est Cr Clr Drug Dosing Estimated GFR (MDRD) (>60) BUN/Creatinine Ratio (9-20) Glucose (80-116) mg/dL Calcium (8.6-10.2) mg/dL Total Bilirubin (0.1-1.3) mg/dL AST (5-25) IU/L ALT (12-36) U/L Alkaline Phosphatase (56-112) IU/L Troponin I 5.5 5.0 (4.0-60.3) pg/mL Total Protein (6.0-8.0) g/dL Albumin (3.2-4.6) g/dL Globulin g/dL Albumin/Globulin Ratio Meds: Medications Generic Name Dose Route Start Last Admin Trade Name Freq PRN Reason Stop Dose Admin Sodium Chloride 1,000 mls @ 100 mls/hr 01/21/20 08:00 01/21/20 08:25 Normal Saline IV 100 mls/hr ASDIRECTED EDUARDO Administration Nitroglycerin 0.4 mg 01/21/20 07:55 01/21/20 08:36 Nitrostat SL 0.4 mg Q5M PRN Administration Chest Pain Sodium Chloride 10 ml 01/21/20 07:55 01/21/20 08:25 Saline Flush FLUSH 10 ml ASDIRECTED PRN Administration Keep Vein Open Discontinued Medications Generic Name Dose Route Start Last Admin Trade Name Freq PRN Reason Stop Dose Admin Aspirin 324 mg 01/21/20 07:56 01/21/20 08:00 Aspirin PO 01/21/20 07:57 324 mg ONETIME ONE Administration Pantoprazole Sodium 40 mg 01/21/20 11:36 01/21/20 11:41 Protonix Iv IVPUSH 01/21/20 11:37 40 mg ONETIME ONE Administration - Radiology Interpretation Free Text/Narrative:: CXR: No acute process. (ED provider interpretation) - Re-Assessments/Exams Free Text/Narrative Re-Assessment/Exam: 01/21/20 11:40 Chest pain resolved after NTG SL x 1. However pain waxed and waned throughout the rest of his ED stay. Troponins and EKGs x2 negative. 01/21/20 11:52 Dr. Falcon will [facility] to [facility] observation. Departure - Departure Time of Disposition: 11:51 Disposition: Refer to Observation Condition: Fair Clinical Impression: Chest pain Qualifiers: Chest pain type: unspecified Qualified Code(s): R07.9 - Chest pain, unspecified Referrals: Júnior Falcon MD [Primary Care Provider] - Forms: ED Department Discharge Sepsis Event Note - Evaluation Sepsis Screening Result: No Definite Risk - Focused Exam Vital Signs: Vital Signs Temp Pulse Resp BP BP Pulse Ox 01/21/20 08:36 146/80 H 01/21/20 07:25 36.4 C 63 14 119/79 98 Date Exam was Performed: 01/21/20 Time Exam was Performed: 11:50 - My Orders Last 24 Hours: My Active Orders 01/21/20 07:55 Nitroglycerin [Nitrostat] 0.4 mg SL Q5M PRN Sodium Chloride 0.9% [Saline Flush] 10 ml FLUSH ASDIRECTED PRN Saline Lock Insert [OM.PC] Routine 01/21/20 07:56 CXR [Chest 1V Frontal] [CR] Stat EKG 12 Lead [EK] Stat 01/21/20 07:57 EKG Documentation Completion [RC] ASDIRECTED 01/21/20 08:00 Sodium Chloride 0.9% [Normal Saline] 1,000 ml IV ASDIRECTED 01/21/20 09:39 CORONAVIRUS COVID-19, CARMELO Stat 01/21/20 11:25 EKG 12 Lead [EK] Stat 01/21/20 11:26 EKG Documentation Completion [RC] ASDIRECTED 01/21/20 11:49 Admission Status [Patient Status] [ADT] Routine - Assessment/Plan Last 24 Hours: My Active Orders 01/21/20 07:55 Nitroglycerin [Nitrostat] 0.4 mg SL Q5M PRN Sodium Chloride 0.9% [Saline Flush] 10 ml FLUSH ASDIRECTED PRN Saline Lock Insert [OM.PC] Routine 01/21/20 07:56 CXR [Chest 1V Frontal] [CR] Stat EKG 12 Lead [EK] Stat 01/21/20 07:57 EKG Documentation Completion [RC] ASDIRECTED 01/21/20 08:00 Sodium Chloride 0.9% [Normal Saline] 1,000 ml IV ASDIRECTED 01/21/20 09:39 CORONAVIRUS COVID-19, CARMELO Stat 01/21/20 11:25 EKG 12 Lead [EK] Stat 01/21/20 11:26 EKG Documentation Completion [RC] ASDIRECTED 01/21/20 11:49 Admission Status [Patient Status] [ADT] Routine
[2020-01-21] MEDS ORDERED: Pantoprazole 40 MG Vial IVPUSH ONE (11:36)
[2020-01-21] MEDS ORDERED: Enoxaparin 40 MG/0.4 ML Syringe SUBCUT SCH (12:15)
--- NOTE | 2020-01-21 13:31 | PCM.HP.2 ---
H&P History of Present Illness - General Date of Service: 01/21/20 Admit Problem/Dx: Admission Diagnosis/Problem Admission Diagnosis/Problem Chest pain Source of Information: Patient - History of Present Illness Initial Comments - Free Text/Narative: This is a 59-year-old male patient came to the ER with chest pain on the left side that started last night. It's not related to deep breaths or exercise. He was evaluated with 2 troponins in the ER and normal EKGs. The use of nitroglycerin and got better. Then it came back. The ER doctor was not convinced that it was cardiac in origin. But felt that he needed to watch to make sure. Patient has no radiation of the pain. The pains of pressure in the left side. He denies diaphoresis, nausea, shortness of breath. He said up to week history of low sore throat, cough with little wheezing. 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 He's had no fevers, chills, runny nose, ear pain. He denies diarrhea, dysuria, prior, hematuria. He has a history of hypertension. Denies history of hyperlipidemia, smoking or previous MIs. 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 Last stress test was many years ago. His mother had an IN at age 65. chest pressure Pain Score (Numeric/FACES): 2 - Related Data Allergies/Adverse Reactions: Allergies Allergy/AdvReac Type Severity Reaction Status Date / Time No Known Allergies Allergy Verified 01/21/20 07:52 Home Medications: Home Meds Aspirin [Ecotrin EC] 81 mg PO DAILY 04/06/19 [History] Cholecalciferol (Vitamin D3) [Vitamin D3] 50 mcg PO DAILY 04/06/19 [History] Fish Oil/[place]-3 Fatty Acids [Fish Oil 1,000 MG] 1,400 mg PO DAILY 04/06/19 [ History] Metoprolol Succinate [Toprol XL 100mg] 100 mg PO DAILY 04/06/19 [History] Multivitamin [Multivitamins] 1 each PO DAILY 04/06/19 [History] Sertraline [Zoloft] 100 mg PO DAILY 04/06/19 [History] hydroCHLOROthiazide [Hydrochlorothiazide] 25 mg PO DAILY 04/06/19 [History] Docusate Sodium [Colace] 1 cap PO DAILY 01/21/20 [History] Past Medical History Other HEENT History: wears glasses Cardiovascular History: Reports: Arrhythmia, Hypertension. Denies: CAD, IN Respiratory History: Reports: SOB, Other (See Below) Other Respiratory History: SOB with activity at times. Gastrointestinal History: Reports: Hiatal Hernia Genitourinary History: Reports: Other (See Below) Other Genitourinary History: kidney issues in the past Musculoskeletal History: Reports: Arthritis, Other (See Below) Other Musculoskeletal History: Left knee arthritis. Neurological History: Reports: Headaches, Chronic Other Neuro History: Concussions in high school with football injuries. Endocrine/Metabolic History: Reports: Diabetes, Type II, Other (See Below) Other Endocrine/Metabolic History: borderline - Infectious Disease History Infectious Disease History: Reports: Chicken Pox, Measles, Mumps - Past Surgical History HEENT Surgical History: Reports: Adenoidectomy Cardiovascular Surgical History: Reports: Cardiac Ablation GI Surgical History: Reports: Hernia Repair/Other, Small Bowel Musculoskeletal Surgical History: Reports: Arthroscopic Knee Social & Family History - Family History Family Medical History: Noncontributory - Tobacco Use Smoking Status *Q: Never Smoker Second Hand Smoke Exposure: No - Caffeine Use Caffeine Use: Reports: Soda - Recreational Drug Use Recreational Drug Use: No H&P Review of Systems - Review of Systems: Review Of Systems: See Below General: Reports: No Symptoms HEENT: Reports: No Symptoms Pulmonary: Reports: Wheezing, Cough. Denies: Shortness of Breath, Sputum Cardiovascular: Reports: Chest Pain. Denies: Edema Gastrointestinal: Reports: No Symptoms Genitourinary: Reports: No Symptoms Musculoskeletal: Reports: No Symptoms Skin: Reports: No Symptoms Psychiatric: Reports: No Symptoms Neurological: Reports: No Symptoms Hematologic/Lymphatic: Reports: No Symptoms Immunologic: Reports: No Symptoms Exam - Exam Exam: See Below - Vital Signs Vital Signs: Last Vital Signs Temp 97.5 F 01/21/20 12:30 Pulse 64 01/21/20 12:30 Resp 20 01/21/20 12:30 BP 148/86 H 01/21/20 12:30 Pulse Ox 99 01/21/20 12:30 Weight: 260 lb - Exam General: Alert, Oriented, Cooperative, Other (Overweight) HEENT: Hearing Intact, Mucosa Moist & [place], Posterior Pharynx Clear, TMs Clear Neck: Supple, Trachea Midline Lungs: Clear to Auscultation, Normal Respiratory Effort. No: Decreased Breath Sounds, Crackles, Rales, Rhonchi Cardiovascular: Regular Rate, Regular Rhythm. No: Systolic Murmur, Diastolic Murmur GI/Abdominal Exam: Normal Bowel Sounds, Soft, Non-Tender, No Distention, No Abnormal Bruit, No Mass Extremities: Normal Inspection, Normal Range of Motion, Non-Tender, No Pedal Edema Skin: Warm, Dry, Intact Neurological: Normal Tone Neuro Extensive - Mental Status: Alert, Oriented x3, Normal Mood/Affect, Normal Cognition Psychiatric: Alert, Normal Affect, Normal Mood - Patient Data Lab Results Last 24 hrs: Laboratory Results - last 24 hr 01/21/20 01/21/20 01/21/20 Range/Units 08:10 08:10 08:10 WBC 5.0 (4.5-12.0) X10-3/uL RBC 5.28 (4.30-5.75) x10(6)uL Hgb 15.1 (13.5-17.8) g/dL Hct 43.6 (30.0-51.3) % MCV 82.7 (80-96) fL MCH 28.5 (27.7-33.6) pg MCHC 34.5 (32.2-35.4) g/dL RDW 13.5 (11.5-15.5) % Plt Count 214 (125-369) X10(3)uL MPV 8.0 (7.4-10.4) fL Neut % (Auto) 61.3 (46-82) % Lymph % (Auto) 22.5 (13-37) % [place] % (Auto) 5.5 (4-12) % Eos % (Auto) 10 H (1.0-5.0) % Baso % (Auto) 1 (0-2) % Neut # (Auto) 3.1 (1.6-8.3) # Lymph # (Auto) 1.1 (0.6-5.0) # [place] # (Auto) 0.3 (0.0-1.3) # Eos # (Auto) 0.5 (0.0-0.8) # Baso # (Auto) 0.0 (0.0-0.2) # PT 10.1 (9.0-11.1) sec INR 0.94 L (1.00-1.24) APTT 24.3 L (24.4-33.2) SECONDS D-Dimer, Quantitative (0.0-0.59) mg/LFEU Sodium 142 (135-145) mmol/L Potassium 4.3 (3.5-5.3) mmol/L Chloride 104 (100-110) mmol/L Carbon Dioxide 29 (21-32) mmol/L BUN 19 H (7-18) mg/dL Creatinine 1.2 (0.70-1.30) mg/dL Est Cr Clr Drug Dosing TNP Estimated GFR (MDRD) > 60 (>60) BUN/Creatinine Ratio 15.8 (9-20) Glucose 124 H (80-116) mg/dL Calcium 9.0 (8.6-10.2) mg/dL Total Bilirubin 0.4 (0.1-1.3) mg/dL AST 14 D (5-25) IU/L ALT 22 (12-36) U/L Alkaline Phosphatase 63 (56-112) IU/L Troponin I (4.0-60.3) pg/mL Total Protein 6.9 (6.0-8.0) g/dL Albumin 3.3 (3.2-4.6) g/dL Globulin 3.6 g/dL Albumin/Globulin Ratio 0.9 01/21/20 01/21/20 01/21/20 Range/Units 08:10 08:10 11:00 WBC (4.5-12.0) X10-3/uL RBC (4.30-5.75) x10(6)uL Hgb (13.5-17.8) g/dL Hct (30.0-51.3) % MCV (80-96) fL MCH (27.7-33.6) pg MCHC (32.2-35.4) g/dL RDW (11.5-15.5) % Plt Count (125-369) X10(3)uL MPV (7.4-10.4) fL Neut % (Auto) (46-82) % Lymph % (Auto) (13-37) % [place] % (Auto) (4-12) % Eos % (Auto) (1.0-5.0) % Baso % (Auto) (0-2) % Neut # (Auto) (1.6-8.3) # Lymph # (Auto) (0.6-5.0) # [place] # (Auto) (0.0-1.3) # Eos # (Auto) (0.0-0.8) # Baso # (Auto) (0.0-0.2) # PT (9.0-11.1) sec INR (1.00-1.24) APTT (24.4-33.2) SECONDS D-Dimer, Quantitative 0.46 (0.0-0.59) mg/LFEU Sodium (135-145) mmol/L Potassium (3.5-5.3) mmol/L Chloride (100-110) mmol/L Carbon Dioxide (21-32) mmol/L BUN (7-18) mg/dL Creatinine (0.70-1.30) mg/dL Est Cr Clr Drug Dosing Estimated GFR (MDRD) (>60) BUN/Creatinine Ratio (9-20) Glucose (80-116) mg/dL Calcium (8.6-10.2) mg/dL Total Bilirubin (0.1-1.3) mg/dL AST (5-25) IU/L ALT (12-36) U/L Alkaline Phosphatase (56-112) IU/L Troponin I 5.5 5.0 (4.0-60.3) pg/mL Total Protein (6.0-8.0) g/dL Albumin (3.2-4.6) g/dL Globulin g/dL Albumin/Globulin Ratio Result Diagrams: 01/21/20 08:10 01/21/20 08:10 Sepsis Event Note - Evaluation Sepsis Screening Result: No Definite Risk - Focused Exam Vital Signs: Vital Signs Temp Pulse Resp BP BP Pulse Ox 01/21/20 12:30 97.5 F 64 20 148/86 H 99 01/21/20 08:36 146/80 H 01/21/20 07:25 97.6 F 63 14 119/79 98 Date Exam was Performed: 01/21/20 Time Exam was Performed: 13:30 - Problem List (1) URI (upper respiratory infection) SNOMED Code(s): 86833170 ICD Code: J06.9 - ACUTE UPPER RESPIRATORY INFECTION, UNSPECIFIED Status: Acute Current Visit: Yes (2) Chest pain SNOMED Code(s): 31500212 ICD Code: R07.9 - CHEST PAIN, UNSPECIFIED Status: Acute Current Visit: Yes Qualifiers: Chest pain type: unspecified Qualified Code(s): R07.9 - Chest pain, unspecified Problem List Initiated/Reviewed/Updated: Yes Orders Last 24hrs: Active Orders 24 hr Category Date Time Status Admission Status [Patient Status] [ADT] Routine ADT 01/21/20 11:49 Active Ambulate [RC] ASDIRECTED Care 01/21/20 12:14 Active Cardiac Monitoring [RC] CONTINUOUS Care 01/21/20 12:14 Active EKG Documentation Completion [RC] ASDIRECTED Care 01/21/20 07:57 Active EKG Documentation Completion [RC] ASDIRECTED Care 01/21/20 11:26 Active Height and Weight [RC] DAILY Care 01/21/20 12:14 Active Intake and Output [RC] QSHIFT Care 01/21/20 12:14 Active Notify Provider Vital Signs [RC] ASDIRECTED Care 01/21/20 12:14 Active Oxygen Therapy [RC] PRN Care 01/21/20 12:14 Active Pulse Oximetry [RC] PRN Care 01/21/20 12:14 Active VTE/DVT Education [RC] Per Unit Routine Care 01/21/20 12:14 Active Vital Signs [RC] QSHIFT Care 01/21/20 12:14 Active Heart Healthy Diet [DIET] Diet 01/21/20 Dinner Active CXR [Chest 1V Frontal] [CR] Stat Exams 01/21/20 07:56 Taken BASIC METABOLIC PANEL,BMP [CHEM] AM Lab 01/22/20 05:11 Ordered CBC WITH AUTO DIFF [HEME] AM Lab 01/22/20 05:11 Ordered CORONAVIRUS COVID-19, CARMELO Stat Lab 01/21/20 09:39 Ordered TROPONIN I [CHEM] Q6H Lab 01/21/20 17:00 Ordered TROPONIN I [CHEM] Q6H Lab 01/21/20 23:00 Ordered TROPONIN I [CHEM] Q6H Lab 01/22/20 05:00 Ordered Aspirin [Ecotrin] Med 01/22/20 09:00 Active 325 mg PO DAILY Aspirin [Halfprin] Med 01/22/20 09:00 Ordered 81 mg PO DAILY Enoxaparin [Lovenox] Med 01/21/20 12:15 Active 40 mg SUBCUT Q24H Metoprolol Succinate [Toprol XL] Med 01/22/20 09:00 Ordered 100 mg PO DAILY Multivitamin [Multivitamins] Med 01/22/20 09:00 Ordered 1 each PO DAILY Nitroglycerin [Nitrostat] Med 01/21/20 12:18 Active 0.4 mg SL Q5M PRN Pantoprazole [ProTONIX IV] Med 01/22/20 12:00 Active 40 mg IVPUSH Q24H Sertraline [Zoloft] Med 01/22/20 09:00 Ordered 100 mg PO DAILY Sodium Chloride 0.9% [Normal Saline] 1,000 ml Med 01/21/20 08:00 Active IV ASDIRECTED Sodium Chloride 0.9% [Saline Flush] Med 01/21/20 07:55 Active 10 ml FLUSH ASDIRECTED PRN hydroCHLOROthiazide Med 01/22/20 09:00 Ordered 25 mg PO DAILY Isolation [COMM] Routine Oth 01/21/20 12:22 Ordered Saline Lock Insert [OM.PC] Routine Oth 01/21/20 07:55 Ordered Resuscitation Status Routine Resus Stat 01/21/20 12:14 Ordered EKG 12 Lead [EK] Stat Ther 01/21/20 07:56 Ordered EKG 12 Lead [EK] Stat Ther 01/21/20 11:25 Ordered Medication Orders Aspirin (Ecotrin) 325 mg PO DAILY [facility] Aspirin (Halfprin) 81 mg PO DAILY [facility] Enoxaparin Sodium (Lovenox) 40 mg SUBCUT Q24H [facility] Hydrochlorothiazide (Hydrochlorothiazide) 25 mg PO DAILY [facility] Sodium Chloride (Normal Saline) 1,000 mls @ 100 mls/hr IV ASDIRECTED EDUARDO Last Admin: 01/21/20 08:25 Dose: 100 mls/hr Metoprolol Succinate (Toprol Xl) 100 mg PO DAILY [facility] Nitroglycerin (Nitrostat) 0.4 mg SL Q5M PRN PRN Reason: Chest Pain Non-Formulary Medication (Multivitamin [Multivitamins]) 1 each PO DAILY [facility] Pantoprazole Sodium (Protonix Iv) 40 mg IVPUSH Q24H [facility] Sertraline HCl (Zoloft) 100 mg PO DAILY [facility] Sodium Chloride (Saline Flush) 10 ml FLUSH ASDIRECTED PRN PRN Reason: Keep Vein Open Last Admin: 01/21/20 08:25 Dose: 10 ml Assessment/Plan Comment:: 1 admit to observation to check more EKGs and troponins. 2. IV Protonix to see if the origin of the chest pain is cardiac. 3. Full code 4. Up ad nic. 5. Regular diet 6. O2 to keep sats greater than 90% 7. VTE prophylaxis with Lovenox. 8. Continue home meds. 9. Koch virus 19 testing per patient's request. Probability is low. - Mortality Measure Prognosis:: Good
[2020-01-21] MEDS ORDERED: hydrOXYzine HCl 25 MG Tab PO PRN (21:20)
[2020-01-22 00:51] VITALS: BP 106/67; PULSE 64
[2020-01-22] MEDS: Sodium Chloride 0.9% 1,000 ML IV SCH (03:47)
--- NOTE | 2020-01-22 08:01 | PCM.PN ---
- General Info Date of Service: 01/22/20 Admission Dx/Problem (Free Text): Patient states he is a little sore throat and little congestion. Denies any chest pain, shortness of breath, fevers or chills. - Patient Data Vitals - Most Recent: Last Vital Signs Temp 97.6 F 01/21/20 23:30 Pulse 64 01/21/20 23:30 Resp 18 01/21/20 23:30 BP 106/67 01/21/20 23:30 Pulse Ox 95 01/21/20 23:30 Weight - Most Recent: 305 lb I&O - Last 24 Hours: Intake & Output 01/21/20 01/22/20 01/22/20 22:59 06:59 14:59 Intake Total 1543 706 Output Total 1000 1500 Balance 543 -794 Lab Results Last 24 Hours: Laboratory Results - last 24 hr 01/21/20 01/21/20 01/21/20 Range/Units 08:10 08:10 08:10 WBC 5.0 (4.5-12.0) X10-3/uL RBC 5.28 (4.30-5.75) x10(6)uL Hgb 15.1 (13.5-17.8) g/dL Hct 43.6 (30.0-51.3) % MCV 82.7 (80-96) fL MCH 28.5 (27.7-33.6) pg MCHC 34.5 (32.2-35.4) g/dL RDW 13.5 (11.5-15.5) % Plt Count 214 (125-369) X10(3)uL MPV 8.0 (7.4-10.4) fL Neut % (Auto) 61.3 (46-82) % Lymph % (Auto) 22.5 (13-37) % [place] % (Auto) 5.5 (4-12) % Eos % (Auto) 10 H (1.0-5.0) % Baso % (Auto) 1 (0-2) % Neut # (Auto) 3.1 (1.6-8.3) # Lymph # (Auto) 1.1 (0.6-5.0) # [place] # (Auto) 0.3 (0.0-1.3) # Eos # (Auto) 0.5 (0.0-0.8) # Baso # (Auto) 0.0 (0.0-0.2) # PT 10.1 (9.0-11.1) sec INR 0.94 L (1.00-1.24) APTT 24.3 L (24.4-33.2) SECONDS D-Dimer, Quantitative (0.0-0.59) mg/LFEU Sodium 142 (135-145) mmol/L Potassium 4.3 (3.5-5.3) mmol/L Chloride 104 (100-110) mmol/L Carbon Dioxide 29 (21-32) mmol/L BUN 19 H (7-18) mg/dL Creatinine 1.2 (0.70-1.30) mg/dL Est Cr Clr Drug Dosing TNP Estimated GFR (MDRD) > 60 (>60) BUN/Creatinine Ratio 15.8 (9-20) Glucose 124 H (80-116) mg/dL Calcium 9.0 (8.6-10.2) mg/dL Total Bilirubin 0.4 (0.1-1.3) mg/dL AST 14 D (5-25) IU/L ALT 22 (12-36) U/L Alkaline Phosphatase 63 (56-112) IU/L Troponin I (4.0-60.3) pg/mL Total Protein 6.9 (6.0-8.0) g/dL Albumin 3.3 (3.2-4.6) g/dL Globulin 3.6 g/dL Albumin/Globulin Ratio 0.9 01/21/20 01/21/20 01/21/20 Range/Units 08:10 08:10 11:00 WBC (4.5-12.0) X10-3/uL RBC (4.30-5.75) x10(6)uL Hgb (13.5-17.8) g/dL Hct (30.0-51.3) % MCV (80-96) fL MCH (27.7-33.6) pg MCHC (32.2-35.4) g/dL RDW (11.5-15.5) % Plt Count (125-369) X10(3)uL MPV (7.4-10.4) fL Neut % (Auto) (46-82) % Lymph % (Auto) (13-37) % [place] % (Auto) (4-12) % Eos % (Auto) (1.0-5.0) % Baso % (Auto) (0-2) % Neut # (Auto) (1.6-8.3) # Lymph # (Auto) (0.6-5.0) # [place] # (Auto) (0.0-1.3) # Eos # (Auto) (0.0-0.8) # Baso # (Auto) (0.0-0.2) # PT (9.0-11.1) sec INR (1.00-1.24) APTT (24.4-33.2) SECONDS D-Dimer, Quantitative 0.46 (0.0-0.59) mg/LFEU Sodium (135-145) mmol/L Potassium (3.5-5.3) mmol/L Chloride (100-110) mmol/L Carbon Dioxide (21-32) mmol/L BUN (7-18) mg/dL Creatinine (0.70-1.30) mg/dL Est Cr Clr Drug Dosing Estimated GFR (MDRD) (>60) BUN/Creatinine Ratio (9-20) Glucose (80-116) mg/dL Calcium (8.6-10.2) mg/dL Total Bilirubin (0.1-1.3) mg/dL AST (5-25) IU/L ALT (12-36) U/L Alkaline Phosphatase (56-112) IU/L Troponin I 5.5 5.0 (4.0-60.3) pg/mL Total Protein (6.0-8.0) g/dL Albumin (3.2-4.6) g/dL Globulin g/dL Albumin/Globulin Ratio 01/21/20 01/22/20 01/22/20 Range/Units 16:15 06:40 06:40 WBC 4.5 (4.5-12.0) X10-3/uL RBC 5.09 (4.30-5.75) x10(6)uL Hgb 14.1 (13.5-17.8) g/dL Hct 42.3 (30.0-51.3) % MCV 83.0 (80-96) fL MCH 27.8 (27.7-33.6) pg MCHC 33.5 (32.2-35.4) g/dL RDW 13.5 (11.5-15.5) % Plt Count 195 (125-369) X10(3)uL MPV 7.8 (7.4-10.4) fL Neut % (Auto) 57.1 (46-82) % Lymph % (Auto) 27.2 (13-37) % [place] % (Auto) 5.7 (4-12) % Eos % (Auto) 9 H (1.0-5.0) % Baso % (Auto) 1 (0-2) % Neut # (Auto) 2.6 (1.6-8.3) # Lymph # (Auto) 1.2 (0.6-5.0) # [place] # (Auto) 0.3 (0.0-1.3) # Eos # (Auto) 0.4 (0.0-0.8) # Baso # (Auto) 0.0 (0.0-0.2) # PT (9.0-11.1) sec INR (1.00-1.24) APTT (24.4-33.2) SECONDS D-Dimer, Quantitative (0.0-0.59) mg/LFEU Sodium (135-145) mmol/L Potassium (3.5-5.3) mmol/L Chloride (100-110) mmol/L Carbon Dioxide (21-32) mmol/L BUN (7-18) mg/dL Creatinine (0.70-1.30) mg/dL Est Cr Clr Drug Dosing Estimated GFR (MDRD) (>60) BUN/Creatinine Ratio (9-20) Glucose (80-116) mg/dL Calcium (8.6-10.2) mg/dL Total Bilirubin (0.1-1.3) mg/dL AST (5-25) IU/L ALT (12-36) U/L Alkaline Phosphatase (56-112) IU/L Troponin I 5.6 8.5 (4.0-60.3) pg/mL Total Protein (6.0-8.0) g/dL Albumin (3.2-4.6) g/dL Globulin g/dL Albumin/Globulin Ratio 01/22/20 Range/Units 06:40 WBC (4.5-12.0) X10-3/uL RBC (4.30-5.75) x10(6)uL Hgb (13.5-17.8) g/dL Hct (30.0-51.3) % MCV (80-96) fL MCH (27.7-33.6) pg MCHC (32.2-35.4) g/dL RDW (11.5-15.5) % Plt Count (125-369) X10(3)uL MPV (7.4-10.4) fL Neut % (Auto) (46-82) % Lymph % (Auto) (13-37) % [place] % (Auto) (4-12) % Eos % (Auto) (1.0-5.0) % Baso % (Auto) (0-2) % Neut # (Auto) (1.6-8.3) # Lymph # (Auto) (0.6-5.0) # [place] # (Auto) (0.0-1.3) # Eos # (Auto) (0.0-0.8) # Baso # (Auto) (0.0-0.2) # PT (9.0-11.1) sec INR (1.00-1.24) APTT (24.4-33.2) SECONDS D-Dimer, Quantitative (0.0-0.59) mg/LFEU Sodium 141 (135-145) mmol/L Potassium 3.7 (3.5-5.3) mmol/L Chloride 106 (100-110) mmol/L Carbon Dioxide 28 (21-32) mmol/L BUN 15 (7-18) mg/dL Creatinine 1.0 (0.70-1.30) mg/dL Est Cr Clr Drug Dosing 77.57 Estimated GFR (MDRD) > 60 (>60) BUN/Creatinine Ratio 15.0 (9-20) Glucose 109 (80-116) mg/dL Calcium 8.6 (8.6-10.2) mg/dL Total Bilirubin (0.1-1.3) mg/dL AST (5-25) IU/L ALT (12-36) U/L Alkaline Phosphatase (56-112) IU/L Troponin I (4.0-60.3) pg/mL Total Protein (6.0-8.0) g/dL Albumin (3.2-4.6) g/dL Globulin g/dL Albumin/Globulin Ratio Med Orders - Current: Current Medications Aspirin (Halfprin) 81 mg PO DAILY [facility] Enoxaparin Sodium (Lovenox) 40 mg SUBCUT Q24H [facility] Last Admin: 01/21/20 13:48 Dose: 40 mg Hydrochlorothiazide (Hydrochlorothiazide) 25 mg PO DAILY [facility] Hydroxyzine HCl (Atarax) 25 mg PO BEDTIME PRN PRN Reason: Insomnia Last Admin: 01/21/20 21:55 Dose: 25 mg Sodium Chloride (Normal Saline) 1,000 mls @ 100 mls/hr IV ASDIRECTED EDUARDO Last Admin: 01/22/20 03:47 Dose: 100 mls/hr Metoprolol Succinate (Toprol Xl) 100 mg PO DAILY [facility] Multivitamins/Minerals/Vitamin C (Tab-A-Iza) 1 tab PO DAILY [facility] Nitroglycerin (Nitrostat) 0.4 mg SL Q5M PRN PRN Reason: Chest Pain Pantoprazole Sodium (Protonix Iv) 40 mg IVPUSH Q24H [facility] Sertraline HCl (Zoloft) 100 mg PO DAILY [facility] Sodium Chloride (Saline Flush) 10 ml FLUSH ASDIRECTED PRN PRN Reason: Keep Vein Open Last Admin: 01/21/20 08:25 Dose: 10 ml Discontinued Medications Aspirin (Aspirin) 324 mg PO ONETIME ONE Stop: 01/21/20 07:57 Last Admin: 01/21/20 08:00 Dose: 324 mg Aspirin (Ecotrin) 325 mg PO DAILY [facility] Nitroglycerin (Nitrostat) 0.4 mg SL Q5M PRN PRN Reason: Chest Pain Last Admin: 01/21/20 08:36 Dose: 0.4 mg Pantoprazole Sodium (Protonix Iv) 40 mg IVPUSH ONETIME ONE Stop: 01/21/20 11:37 Last Admin: 01/21/20 11:41 Dose: 40 mg - Exam General: Alert, Oriented Lungs: Clear to Auscultation, Normal Respiratory Effort Cardiovascular: Regular Rate, Regular Rhythm, No Murmurs Back Exam: Normal Inspection Extremities: No Pedal Edema Sepsis Event Note - Evaluation Sepsis Screening Result: No Definite Risk - Focused Exam Vital Signs: Vital Signs Temp Pulse Resp BP Pulse Ox 01/21/20 23:30 97.6 F 64 18 106/67 95 Date Exam was Performed: 01/22/20 Time Exam was Performed: 08:00 - Problem List & Annotations (1) URI (upper respiratory infection) SNOMED Code(s): 47531555 Code(s): J06.9 - ACUTE UPPER RESPIRATORY INFECTION, UNSPECIFIED Status: Acute Current Visit: Yes (2) Chest pain SNOMED Code(s): 93110651 Code(s): R07.9 - CHEST PAIN, UNSPECIFIED Status: Acute Current Visit: Yes Qualifiers: Chest pain type: unspecified Qualified Code(s): R07.9 - Chest pain, unspecified - Problem List Review Problem List Initiated/Reviewed/Updated: No - My Orders Last 24 Hours: My Active Orders 01/21/20 13:32 EKG Documentation Completion [RC] ASDIRECTED 01/21/20 16:00 EKG 12 Lead [EK] Routine 01/21/20 21:20 hydrOXYzine HCL [Atarax] 25 mg PO BEDTIME PRN 01/22/20 09:00 Aspirin [Halfprin] 81 mg PO DAILY Metoprolol Succinate [Toprol XL] 100 mg PO DAILY Multivitamins [Tab-A-Iza] 1 tab PO DAILY Sertraline [Zoloft] 100 mg PO DAILY hydroCHLOROthiazide 25 mg PO DAILY - Plan Plan:: 1 discharge to home. 2. Self isolate until his coronavirus 19 comes back positive. 3. Recheck next week with Dr. Falcon with a stress test.
--- NOTE | 2020-01-22 08:08 | PCM.DCSUM1 ---
Discharge Summary - Hospital Course Free Text/Narrative:: Hospital course-patient was admitted because of his chest pain. Telemetry was used. He had to normal troponins in the ER and EKGs. Patient was observed overnight. He was given Protonix IV and his chest pain got better. He did have some sore throat and little bit of congestion. He had the coronavirus 19 test done by the ER doc because his had been exposed in the [place] [facility]. She did not have any symptoms. He was isolated here. Patient was asymptomatic overnight with no fevers, chest pain or shortness of breath. Little scratchy throat and will congestion. We'll discharged him and have him self isolate until his coronavirus 19 test comes back positive then in a week if the test is negative go ahead and see him in the clinic and do a stress test. I'll send him home on some Protonix 40 mg once a day. Brief History: This is a 59-year-old male patient came to the ER with chest pain on the left side that started last night. It's not related to deep breaths or exercise. He was evaluated with 2 troponins in the ER and normal EKGs. The use of nitroglycerin and got better. Then it came back. The ER doctor was not convinced that it was cardiac in origin. But felt that he needed to watch to make sure. Patient has no radiation of the pain. The pains of pressure in the left side. He denies diaphoresis, nausea, shortness of breath. He said up to week history of low sore throat, cough with little wheezing. 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 He's had no fevers, chills, runny nose, ear pain. He denies diarrhea, dysuria, prior, hematuria. He has a history of hypertension. Denies history of hyperlipidemia, smoking or previous MIs. 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 Last stress test was many years ago. His mother had an UT at age 65. Diagnosis: Stroke: No - Discharge Data Discharge Date: 01/22/20 Discharge Disposition: Home, Self-Care 01 Condition: Good - Referral to Home Health Primary Care Physician: Júnior Falcon MD - Discharge Diagnosis/Problem(s) (1) URI (upper respiratory infection) SNOMED Code(s): 63516787 ICD Code: J06.9 - ACUTE UPPER RESPIRATORY INFECTION, UNSPECIFIED Status: Acute Current Visit: Yes (2) Chest pain SNOMED Code(s): 28545629 ICD Code: R07.9 - CHEST PAIN, UNSPECIFIED Status: Acute Current Visit: Yes Qualifiers: Chest pain type: unspecified Qualified Code(s): R07.9 - Chest pain, unspecified (3) GERD (gastroesophageal reflux disease) SNOMED Code(s): 302804441 ICD Code: K21.9 - GASTRO-ESOPHAGEAL REFLUX DISEASE WITHOUT ESOPHAGITIS Status: Acute Current Visit: Yes - Patient Instructions Diet: Heart Healthy Diet Activity: As Tolerated Activity, Other: Self isolate until this coronavirus 19 test comes back Driving: May Drive Today Showering/Bathing: May Shower Notify Provider of: Fever, Increased Pain Other/Special Instructions: 1. Self isolate to the COVID 19 test comes back. 2. Recheck with Dr. Falcon in 1 week with a stress test. That of course assuming the coronavirus test is negative. - Discharge Plan Prescriptions/Med Rec: Pantoprazole Sodium [Protonix] 40 mg PO DAILY #30 tablet. [place] Medications: Home Meds Aspirin [Ecotrin EC] 81 mg PO DAILY 04/06/19 [History] Cholecalciferol (Vitamin D3) [Vitamin D3] 50 mcg PO DAILY 04/06/19 [History] Fish Oil/[place]-3 Fatty Acids [Fish Oil 1,000 MG] 1,400 mg PO DAILY 04/06/19 [ History] Metoprolol Succinate [Toprol XL 100mg] 100 mg PO DAILY 04/06/19 [History] Multivitamin [Multivitamins] 1 each PO DAILY 04/06/19 [History] Sertraline [Zoloft] 100 mg PO DAILY 04/06/19 [History] hydroCHLOROthiazide [Hydrochlorothiazide] 25 mg PO DAILY 04/06/19 [History] Docusate Sodium [Colace] 1 cap PO DAILY 01/21/20 [History] Pantoprazole Sodium [Protonix] 40 mg PO DAILY #30 tablet. 01/22/20 [Rx] Patient Handouts: COVID-19 Frequently Asked Questions, Nonspecific Chest Pain, Adult, [id number], COVID-19: How to Protect Yourself and Others - CDC, Angina , [id number] Forms: ED Department Discharge Referrals: Júnior Falcon MD [Primary Care Provider] - - Discharge Summary/Plan Comment DC Time >30 min.: No - Patient Data Vitals - Most Recent: Last Vital Signs Temp 97.6 F 01/21/20 23:30 Pulse 64 01/21/20 23:30 Resp 18 01/21/20 23:30 BP 106/67 01/21/20 23:30 Pulse Ox 95 01/21/20 23:30 Weight - Most Recent: 305 lb I&O - Last 24 hours: Intake & Output 01/21/20 01/22/20 01/22/20 22:59 06:59 14:59 Intake Total 1543 706 Output Total 1000 1500 Balance 543 -794 Lab Results - Last 24 hrs: Laboratory Results - last 24 hr 01/21/20 01/21/20 01/21/20 Range/Units 08:10 08:10 08:10 WBC 5.0 (4.5-12.0) X10-3/uL RBC 5.28 (4.30-5.75) x10(6)uL Hgb 15.1 (13.5-17.8) g/dL Hct 43.6 (30.0-51.3) % MCV 82.7 (80-96) fL MCH 28.5 (27.7-33.6) pg MCHC 34.5 (32.2-35.4) g/dL RDW 13.5 (11.5-15.5) % Plt Count 214 (125-369) X10(3)uL MPV 8.0 (7.4-10.4) fL Neut % (Auto) 61.3 (46-82) % Lymph % (Auto) 22.5 (13-37) % [place] % (Auto) 5.5 (4-12) % Eos % (Auto) 10 H (1.0-5.0) % Baso % (Auto) 1 (0-2) % Neut # (Auto) 3.1 (1.6-8.3) # Lymph # (Auto) 1.1 (0.6-5.0) # [place] # (Auto) 0.3 (0.0-1.3) # Eos # (Auto) 0.5 (0.0-0.8) # Baso # (Auto) 0.0 (0.0-0.2) # PT 10.1 (9.0-11.1) sec INR 0.94 L (1.00-1.24) APTT 24.3 L (24.4-33.2) SECONDS D-Dimer, Quantitative (0.0-0.59) mg/LFEU Sodium 142 (135-145) mmol/L Potassium 4.3 (3.5-5.3) mmol/L Chloride 104 (100-110) mmol/L Carbon Dioxide 29 (21-32) mmol/L BUN 19 H (7-18) mg/dL Creatinine 1.2 (0.70-1.30) mg/dL Est Cr Clr Drug Dosing TNP Estimated GFR (MDRD) > 60 (>60) BUN/Creatinine Ratio 15.8 (9-20) Glucose 124 H (80-116) mg/dL Calcium 9.0 (8.6-10.2) mg/dL Total Bilirubin 0.4 (0.1-1.3) mg/dL AST 14 D (5-25) IU/L ALT 22 (12-36) U/L Alkaline Phosphatase 63 (56-112) IU/L Troponin I (4.0-60.3) pg/mL Total Protein 6.9 (6.0-8.0) g/dL Albumin 3.3 (3.2-4.6) g/dL Globulin 3.6 g/dL Albumin/Globulin Ratio 0.9 01/21/20 01/21/20 01/21/20 Range/Units 08:10 08:10 11:00 WBC (4.5-12.0) X10-3/uL RBC (4.30-5.75) x10(6)uL Hgb (13.5-17.8) g/dL Hct (30.0-51.3) % MCV (80-96) fL MCH (27.7-33.6) pg MCHC (32.2-35.4) g/dL RDW (11.5-15.5) % Plt Count (125-369) X10(3)uL MPV (7.4-10.4) fL Neut % (Auto) (46-82) % Lymph % (Auto) (13-37) % [place] % (Auto) (4-12) % Eos % (Auto) (1.0-5.0) % Baso % (Auto) (0-2) % Neut # (Auto) (1.6-8.3) # Lymph # (Auto) (0.6-5.0) # [place] # (Auto) (0.0-1.3) # Eos # (Auto) (0.0-0.8) # Baso # (Auto) (0.0-0.2) # PT (9.0-11.1) sec INR (1.00-1.24) APTT (24.4-33.2) SECONDS D-Dimer, Quantitative 0.46 (0.0-0.59) mg/LFEU Sodium (135-145) mmol/L Potassium (3.5-5.3) mmol/L Chloride (100-110) mmol/L Carbon Dioxide (21-32) mmol/L BUN (7-18) mg/dL Creatinine (0.70-1.30) mg/dL Est Cr Clr Drug Dosing Estimated GFR (MDRD) (>60) BUN/Creatinine Ratio (9-20) Glucose (80-116) mg/dL Calcium (8.6-10.2) mg/dL Total Bilirubin (0.1-1.3) mg/dL AST (5-25) IU/L ALT (12-36) U/L Alkaline Phosphatase (56-112) IU/L Troponin I 5.5 5.0 (4.0-60.3) pg/mL Total Protein (6.0-8.0) g/dL Albumin (3.2-4.6) g/dL Globulin g/dL Albumin/Globulin Ratio 01/21/20 01/22/20 01/22/20 Range/Units 16:15 06:40 06:40 WBC 4.5 (4.5-12.0) X10-3/uL RBC 5.09 (4.30-5.75) x10(6)uL Hgb 14.1 (13.5-17.8) g/dL Hct 42.3 (30.0-51.3) % MCV 83.0 (80-96) fL MCH 27.8 (27.7-33.6) pg MCHC 33.5 (32.2-35.4) g/dL RDW 13.5 (11.5-15.5) % Plt Count 195 (125-369) X10(3)uL MPV 7.8 (7.4-10.4) fL Neut % (Auto) 57.1 (46-82) % Lymph % (Auto) 27.2 (13-37) % [place] % (Auto) 5.7 (4-12) % Eos % (Auto) 9 H (1.0-5.0) % Baso % (Auto) 1 (0-2) % Neut # (Auto) 2.6 (1.6-8.3) # Lymph # (Auto) 1.2 (0.6-5.0) # [place] # (Auto) 0.3 (0.0-1.3) # Eos # (Auto) 0.4 (0.0-0.8) # Baso # (Auto) 0.0 (0.0-0.2) # PT (9.0-11.1) sec INR (1.00-1.24) APTT (24.4-33.2) SECONDS D-Dimer, Quantitative (0.0-0.59) mg/LFEU Sodium (135-145) mmol/L Potassium (3.5-5.3) mmol/L Chloride (100-110) mmol/L Carbon Dioxide (21-32) mmol/L BUN (7-18) mg/dL Creatinine (0.70-1.30) mg/dL Est Cr Clr Drug Dosing Estimated GFR (MDRD) (>60) BUN/Creatinine Ratio (9-20) Glucose (80-116) mg/dL Calcium (8.6-10.2) mg/dL Total Bilirubin (0.1-1.3) mg/dL AST (5-25) IU/L ALT (12-36) U/L Alkaline Phosphatase (56-112) IU/L Troponin I 5.6 8.5 (4.0-60.3) pg/mL Total Protein (6.0-8.0) g/dL Albumin (3.2-4.6) g/dL Globulin g/dL Albumin/Globulin Ratio 01/21/20 Range/Units 06:40 WBC (4.5-12.0) X10-3/uL RBC (4.30-5.75) x10(6)uL Hgb (13.5-17.8) g/dL Hct (30.0-51.3) % MCV (80-96) fL MCH (27.7-33.6) pg MCHC (32.2-35.4) g/dL RDW (11.5-15.5) % Plt Count (125-369) X10(3)uL MPV (7.4-10.4) fL Neut % (Auto) (46-82) % Lymph % (Auto) (13-37) % [place] % (Auto) (4-12) % Eos % (Auto) (1.0-5.0) % Baso % (Auto) (0-2) % Neut # (Auto) (1.6-8.3) # Lymph # (Auto) (0.6-5.0) # [place] # (Auto) (0.0-1.3) # Eos # (Auto) (0.0-0.8) # Baso # (Auto) (0.0-0.2) # PT (9.0-11.1) sec INR (1.00-1.24) APTT (24.4-33.2) SECONDS D-Dimer, Quantitative (0.0-0.59) mg/LFEU Sodium 141 (135-145) mmol/L Potassium 3.7 (3.5-5.3) mmol/L Chloride 106 (100-110) mmol/L Carbon Dioxide 28 (21-32) mmol/L BUN 15 (7-18) mg/dL Creatinine 1.0 (0.70-1.30) mg/dL Est Cr Clr Drug Dosing 77.57 Estimated GFR (MDRD) > 60 (>60) BUN/Creatinine Ratio 15.0 (9-20) Glucose 109 (80-116) mg/dL Calcium 8.6 (8.6-10.2) mg/dL Total Bilirubin (0.1-1.3) mg/dL AST (5-25) IU/L ALT (12-36) U/L Alkaline Phosphatase (56-112) IU/L Troponin I (4.0-60.3) pg/mL Total Protein (6.0-8.0) g/dL Albumin (3.2-4.6) g/dL Globulin g/dL Albumin/Globulin Ratio Med Orders - Current: Current Medications Aspirin (Halfprin) 81 mg PO DAILY [facility] Enoxaparin Sodium (Lovenox) 40 mg SUBCUT Q24H [facility] Last Admin: 01/21/20 13:48 Dose: 40 mg Hydrochlorothiazide (Hydrochlorothiazide) 25 mg PO DAILY [facility] Hydroxyzine HCl (Atarax) 25 mg PO BEDTIME PRN PRN Reason: Insomnia Last Admin: 01/21/20 21:55 Dose: 25 mg Sodium Chloride (Normal Saline) 1,000 mls @ 100 mls/hr IV ASDIRECTED [facility] Last Admin: 01/22/20 03:47 Dose: 100 mls/hr Metoprolol Succinate (Toprol Xl) 100 mg PO DAILY [facility] Multivitamins/Minerals/Vitamin C (Tab-A-Iza) 1 tab PO DAILY [facility] Nitroglycerin (Nitrostat) 0.4 mg SL Q5M PRN PRN Reason: Chest Pain Pantoprazole Sodium (Protonix Iv) 40 mg IVPUSH Q24H [facility] Sertraline HCl (Zoloft) 100 mg PO DAILY [facility] Sodium Chloride (Saline Flush) 10 ml FLUSH ASDIRECTED PRN PRN Reason: Keep Vein Open Last Admin: 01/21/20 08:25 Dose: 10 ml Discontinued Medications Aspirin (Aspirin) 324 mg PO ONETIME ONE Stop: 01/21/20 07:57 Last Admin: 01/21/20 08:00 Dose: 324 mg Aspirin (Ecotrin) 325 mg PO DAILY [facility] Nitroglycerin (Nitrostat) 0.4 mg SL Q5M PRN PRN Reason: Chest Pain Last Admin: 01/21/20 08:36 Dose: 0.4 mg Pantoprazole Sodium (Protonix Iv) 40 mg IVPUSH ONETIME ONE Stop: 01/21/20 11:37 Last Admin: 01/21/20 11:41 Dose: 40 mg
[2020-01-22] MEDS ORDERED: Aspirin 325 MG Tab.EC PO SCH (09:00)
[2020-01-22] MEDS ORDERED: Metoprolol Succinate 100 MG Tab.ER PO SCH (09:00)
[2020-01-22] MEDS ORDERED: Sertraline 100 MG Tab PO SCH (09:00)
[2020-01-22] MEDS ORDERED: Aspirin 81 MG Tab.EC PO SCH (09:00)
[2020-01-22] MEDS ORDERED: Hydrochlorothiazide 25 MG Tab PO SCH (09:00)
[2020-01-22] MEDS ORDERED: Multivitamin Tab PO SCH (09:00)
[2020-01-22] MEDS ORDERED: Pantoprazole 40 MG Vial IVPUSH SCH (12:00)
== END 2020-01-22 08:50 | disposition home or self-care (01) ==
LOC: FB.ED 07:24 → FB.MS 11:49
PROVIDERS: ADMIT Family Medicine; ATTEND Family Medicine
DX: R07.89 Other chest pain (principal); J06.9 Acute upper respiratory infection, unspecified; Z20.828 Contact with and (suspected) exposure to other viral communicable diseases; K21.9 Gastro-esophageal reflux disease without esophagitis; E11.9 Type 2 diabetes mellitus without complications; I10 Essential (primary) hypertension; Z79.82 Long term (current) use of aspirin; Z79.899 Other long term (current) drug therapy
CPT/HCPCS: 36415; 71045; 80048; 80053; 84484; 85025; 85379; 85610; 85730; 93005; 96361; 96372; 96374; 99285-25; A9270-GY; C9113; G0378; J1650; J7030; U0002

== ENCOUNTER 2020-12-10 23:04 | Emergency (ER) | payer BC ==
[2020-12-10] MEDS ORDERED: predniSONE 20 MG Tab PO ONE (23:05)
[2020-12-10 23:27] VITALS: BP 130/79; PULSE 78
[2020-12-10] MEDS ORDERED: hydrOXYzine HCl 50 MG/ML SDV IM ONE (23:32)
[2020-12-10] MEDS ORDERED: Meperidine PF 50 MG/ML Syringe IM ONE (23:32)
[2020-12-10] MEDS ORDERED: hydrOXYzine HCl 50 MG/ML SDV ONE (23:33)
[2020-12-10] MEDS ORDERED: Meperidine PF 50 MG/ML Syringe ONE (23:33)
--- NOTE | 2020-12-10 23:36 | EDM.PDOC ---
ED HPI GENERAL MEDICAL PROBLEM - General Chief Complaint: Headache Stated Complaint: HEADACHE Time Seen by Provider: 12/10/20 23:32 Source of Information: Reports: Patient History Limitations: Reports: No Limitations - History of Present Illness INITIAL COMMENTS - FREE TEXT/NARRATIVE: Rt temporal Headache for 8days. Started after a tooth procedure. Shooting,constant severe pain localized on the right. Nothing helps. No visual disturbance. Has stable HTN RIGHT TEMPERAL Pain Score (Numeric/FACES): 10 - Related Data Allergies Allergy/AdvReac Type Severity Reaction Status Date / Time No Known Allergies Allergy Verified 12/10/20 23:20 Home Meds: Home Meds Aspirin [Ecotrin EC] 81 mg PO DAILY 04/06/19 [History] Cholecalciferol (Vitamin D3) [Vitamin D3] 50 mcg PO DAILY 04/06/19 [History] Fish Oil/[place]-3 Fatty Acids [Fish Oil 1,000 MG] 1,400 mg PO DAILY 04/06/19 [History] Metoprolol Succinate [Toprol XL 100mg] 100 mg PO DAILY 04/06/19 [History] Multivitamin [Multivitamins] 1 each PO DAILY 04/06/19 [History] Sertraline [Zoloft] 100 mg PO DAILY 04/06/19 [History] hydroCHLOROthiazide [Hydrochlorothiazide] 25 mg PO DAILY 04/06/19 [History] Docusate Sodium [Colace] 1 cap PO DAILY 01/21/20 [History] Pantoprazole Sodium [Protonix] 40 mg PO DAILY #30 tablet. 01/22/20 [Rx] Past Medical History Other HEENT History: wears glasses Cardiovascular History: Reports: Arrhythmia, Hypertension Respiratory History: Reports: SOB, Other (See Below) Other Respiratory History: SOB with activity at times. Gastrointestinal History: Reports: Hiatal Hernia Genitourinary History: Reports: Other (See Below) Other Genitourinary History: kidney issues in the past Musculoskeletal History: Reports: Arthritis, Other (See Below) Other Musculoskeletal History: Left knee arthritis. Neurological History: Reports: Headaches, Chronic Other Neuro History: Concussions in high school with football injuries. Endocrine/Metabolic History: Reports: Diabetes, Type II, Other (See Below) Other Endocrine/Metabolic History: borderline - Infectious Disease History Infectious Disease History: Reports: Chicken Pox, Measles, Mumps - Past Surgical History HEENT Surgical History: Reports: Adenoidectomy Other HEENT Surgeries/Procedures: brokin nose did surgery Cardiovascular Surgical History: Reports: Cardiac Ablation Other Cardiovascular Surgeries/Procedures: ablation Respiratory Surgical History: Reports: None GI Surgical History: Reports: Hernia Repair/Other, Small Bowel Other GI Surgeries/Procedures: small bowel surgery Male Surgical History: Reports: Circumcision Endocrine Surgical History: Reports: None Neurological Surgical History: Reports: None Musculoskeletal Surgical History: Reports: Arthroscopic Knee Other Musculoskeletal Surgeries/Procedures:: Left knee surgery following foot ball injury. Social & Family History - Family History Family Medical History: No Pertinent Family History - Tobacco Use Tobacco Use Status *Q: Never Tobacco User - Caffeine Use Caffeine Use: Reports: Soda - Recreational Drug Use Recreational Drug Use: No ED ROS GENERAL - Review of Systems Review Of Systems: Comprehensive ROS is negative, except as noted in HPI. - Physical Exam Exam: See Below Exam Limited By: No Limitations General Appearance: Alert, WD/WN, No Apparent Distress Eye Exam: Bilateral Eye: PERRL (Normal) Ears: Normal External Exam Throat/Mouth: Normal Inspection Head Exam: Atraumatic Psychiatric: Normal Affect Course - Vital Signs Last Recorded V/S: Last Vital Signs Temp 98.2 F 12/10/20 23:10 Pulse 78 12/10/20 23:10 Resp 20 12/10/20 23:10 BP 130/79 12/10/20 23:10 Pulse Ox 98 12/10/20 23:10 - Orders/Labs/Meds Labs: Laboratory Tests 12/10/20 12/10/20 12/10/20 Range/Units 23:45 23:45 23:45 WBC 6.1 (3.2-10.1) x10-3/uL RBC 5.19 (3.90-5.90) x10(6)uL Hgb 14.7 (12.9-17.7) g/dL Hct 42.5 (38.3-50.1) % MCV 82.0 (80.8-98.7) fL MCH 28.4 (27.0-33.3) pg MCHC 34.6 (28.7-35.3) g/dL RDW 14.1 (12.4-15.0) % Plt Count 218 (117-477) x10(3)uL MPV 8.0 (6.7-11.0) fL Neut % (Auto) 54.7 (40.3-71.8) % Lymph % (Auto) 28.4 (15.8-45.3) % [place] % (Auto) 6.9 (5.5-15.2) % Eos % (Auto) 9.3 H (0.1-6.8) % Baso % (Auto) 0.7 (0.3-3.8) % Neut # (Auto) 3.3 (1.7-6.9) x10-3/uL Lymph # (Auto) 1.7 (0.5-4.5) x10-3/uL [place] # (Auto) 0.4 (0.0-1.2) x10-3/uL Eos # (Auto) 0.6 (0.0-0.6) x10-3/uL Baso # (Auto) 0.0 (0.0-0.3) x10-3/uL ESR 24 H (0-15) mm/hr Sodium 140 (135-145) mmol/L Potassium 3.1 L (3.5-5.3) mmol/L Chloride 101 D (100-110) mmol/L Carbon Dioxide 27 (21-32) mmol/L BUN 20 H (7-18) mg/dL Creatinine 1.2 (0.70-1.30) mg/dL Est Cr Clr Drug Dosing 63.83 mL/min Estimated GFR (MDRD) > 60 (>60) BUN/Creatinine Ratio 16.7 (9-20) Glucose 155 H (80-116) mg/dL Hemoglobin A1c 6.1 H (<5.7) % Calcium 8.7 (8.6-10.2) mg/dL C-Reactive Protein (0.5-0.9) mg/dL 12/10/20 Range/Units 23:45 WBC (3.2-10.1) x10-3/uL RBC (3.90-5.90) x10(6)uL Hgb (12.9-17.7) g/dL Hct (38.3-50.1) % MCV (80.8-98.7) fL MCH (27.0-33.3) pg MCHC (28.7-35.3) g/dL RDW (12.4-15.0) % Plt Count (117-477) x10(3)uL MPV (6.7-11.0) fL Neut % (Auto) (40.3-71.8) % Lymph % (Auto) (15.8-45.3) % [place] % (Auto) (5.5-15.2) % Eos % (Auto) (0.1-6.8) % Baso % (Auto) (0.3-3.8) % Neut # (Auto) (1.7-6.9) x10-3/uL Lymph # (Auto) (0.5-4.5) x10-3/uL [place] # (Auto) (0.0-1.2) x10-3/uL Eos # (Auto) (0.0-0.6) x10-3/uL Baso # (Auto) (0.0-0.3) x10-3/uL ESR (0-15) mm/hr Sodium (135-145) mmol/L Potassium (3.5-5.3) mmol/L Chloride (100-110) mmol/L Carbon Dioxide (21-32) mmol/L BUN (7-18) mg/dL Creatinine (0.70-1.30) mg/dL Est Cr Clr Drug Dosing mL/min Estimated GFR (MDRD) (>60) BUN/Creatinine Ratio (9-20) Glucose (80-116) mg/dL Hemoglobin A1c (<5.7) % Calcium (8.6-10.2) mg/dL C-Reactive Protein 2.2 H (0.5-0.9) mg/dL Meds: Medications Discontinued Medications Generic Name Dose Route Start Last Admin Trade Name Freq PRN Reason Stop Dose Admin Hydroxyzine HCl 50 mg 12/10/20 23:32 12/10/20 23:39 Hydroxyzine Hcl 50 Mg/Ml Sdv IM 12/10/20 23:33 50 mg ONETIME ONE Administration Hydroxyzine HCl Confirm 12/10/20 23:33 12/10/20 23:38 Hydroxyzine Hcl 50 Mg/Ml Sdv Administered 12/10/20 23:34 Not Given Dose 50 mg .ROUTE .STK-MED ONE Meperidine HCl 50 mg 12/10/20 23:32 03/17/21 23:39 Meperidine Pf 50 Mg/Ml Syringe IM 12/10/20 23:33 50 mg ONETIME ONE Administration Meperidine HCl Confirm 12/10/20 23:33 12/10/20 23:38 Meperidine Pf 50 Mg/Ml Syringe Administered 12/10/20 23:34 Not Given Dose 50 mg .ROUTE .STK-MED ONE Departure - Departure Time of Disposition: 09:00 Disposition: Home, Self-Care 01 Clinical Impression: Arteritis - Discharge Information Instructions: General Headache Without Cause Referrals: Júnior Falcon MD [Primary Care Provider] - Forms: ED Department Discharge Care Plan Goals: FOLLOW UP WITH DR. FALCON OVER THE NEXT COUPLE DAYS, TUESDAY OR TUESDAY. TAKE PREDNISONE 1 TAB TWO TIMES A DAY. CONTINUE OTHER HOME MEDICATIONS DEMEROL 50 MG AND VISTARIL 50 MG SHOT GIVEN IN ED. Sepsis Event Note (ED) - Evaluation Sepsis Screening Result: No Definite Risk - Focused Exam Vital Signs: Vital Signs Temp Pulse Resp BP Pulse Ox 12/10/20 23:10 98.2 F 78 20 130/79 98 - Problem List & Annotations (1) Headache SNOMED Code(s): 49208969 Code(s): R51.9 - HEADACHE, UNSPECIFIED Status: Acute Qualifiers: Headache chronicity pattern: unspecified pattern Intractability: intractable - Problem List Review Problem List Initiated/Reviewed/Updated: Yes - Assessment/Plan Plan: I considered possibility of GCA,or Trigeminal Neuralgia. I gave him Demerol and Vistaril .Obtain ESR. Start Prednisone 20 mg PO BID. See PCP in 1-2 days
[2020-12-11 00:12] LABS: HEMOGLOBIN A1C 6.1 % (<5.7)
== END 2020-12-10 23:45 | disposition home or self-care (01) ==
LOC: FB.ED 23:04
DX: I77.6 Arteritis, unspecified (principal); I10 Essential (primary) hypertension; M19.90 Unspecified osteoarthritis, unspecified site; E11.9 Type 2 diabetes mellitus without complications; Z98.890 Other specified postprocedural states; Z79.82 Long term (current) use of aspirin; Z79.899 Other long term (current) drug therapy
CPT/HCPCS: 36415; 80048; 83036; 85025; 85651; 86140; 96372; 99283; 99284; J2175; J3410; J7512